=== PATIENT | female | born 1950 | race Asian ===

== ENCOUNTER 2017-10-14 02:49 | Inpatient (IN) | payer OTHER, SELFPAY ==
[2017-10-14] VITALS (7 sets, daily range): BP systolic 104–145; BP diastolic 60–98
[~2017-10-14] VITALS: Ht 154.9 cm; Wt 49.9 kg
[2017-10-14] MEDS ORDERED: Morphine Sulfate 4mg/ml Inj IVP ONE ×2 (03:00→03:45)
--- NOTE | 2017-10-14 03:00 | Emergency Room Report ---
History of Present Illness General Chief Complaint: Multiple Trauma/Fall Source: Patient Present Illness HPI 66-year-old female, history of hypertension and hyperlipidemia, presenting with left hip pain after fall. Patient states that she was going to the bathroom, tripped and fell, landed forward, now complaining of severe left-sided hip pain. EMS gave her 8 mg of morphine which somewhat helped the pain. No head trauma or LOC. No blood thinners Allergies: Coded Allergies: No Known Allergies (Unverified , 10/14/17) Patient History Past Medical History: see triage record Past Surgical History: none Pertinent Family History: none Now: No Reviewed Nursing Documentation: PMH: Agreed; PSxH: Agreed Nursing Documentation-PMH Past Medical History: No History, Except For Hx Neurological Problems: Yes - Arthritis Review of Systems All Other Systems: negative except mentioned in HPI Physical Exam Vital Signs Date Time Temp Pulse Resp B/P (MAP) Pulse Ox O2 Delivery O2 Flow Rate FiO2 10/14/17 02:42 97.8 101 19 154/83 98 Room Air 97.9 Sp02 EP Interpretation: reviewed, normal General Appearance: alert, GCS 15, severe distress Head: normocephalic, atraumatic Eyes: bilateral eye normal inspection, bilateral eye PERRL, bilateral eye EOMI ENT: normal ENT inspection, normal pharynx, normal voice, moist mucus membranes Neck: normal inspection, full range of motion, supple Respiratory: normal inspection, lungs clear, normal breath sounds, no respiratory distress, no retraction, no wheezing, speaking full sentences, chest symmetrical Cardiovascular #1: normal inspection, regular rate, rhythm, no edema, normal capillary refill Cardiovascular #2: 2+ radial (R), 2+ radial (L) Gastrointestinal: normal inspection, non tender, soft, non-distended, no guarding Musculoskeletal: other - Left hip is tender to palpation, no abnormalities in the ankle-foot, distal pulses intact, left hip limited range of motion secondary to pain, back is nontender, full range of motion other extremities Neurologic: normal inspection, alert, oriented x3, responsive, motor strength/ tone normal, sensory intact, speech normal Psychiatric: normal inspection, judgement/insight normal, memory normal Skin: normal inspection, normal color, no rash, warm/dry, well hydrated, normal turgor Medical Decision Making Diagnostic Impression: Primary Impression: Intertrochanteric fracture ER Course 66-year-old female mechanical fall, left hip pain DDX: Hip fracture versus dislocation Plan: Pain control, x-ray ER course: Given morphine for pain +intertrochanteric fx distal pulses intact Disposition: Patient is to be admitted to [facility] hospitalist Dr Childress Notified Orthopedic surgery Dr Blunt Please note that this Emergency Department Report was dictated using [employer] assembly supervisor technology software, occasionally this can lead to erroneous entry secondary to interpretation by the dictation equipment EKG Diagnostic Results EP Interpretation: Yes Rate: normal Rhythm: NSR ST Segments: No acute changes ASA given to patient: No Rhythm Strip EP Interpretation: Yes Rate: 85 Rhythm: NSR, no PVCs, no ectopy Xray: Left hip Complete Indication: Pain EP Interpretation: Yes Interpretation: intertroch fx Acute, mildly comminuted and mildly to moderately displaced intertrochanteric fracture, with mild to moderate apex superolateral angulation and medial displacement of major fracture fragments. (per stat rad) Electronically signed by Cata Valera MD Xray: Left femur 2 view Indication: Pain EP Interpretation: Yes Interpretation: intertroch fx Impression: intertroch fx Electronically signed by Cata Valera MD Laboratory Tests Test 10/14/17 04:00 White Blood Count 11.6 K/UL (4.8-10.8) H Red Blood Count 4.89 M/UL (4.20-5.40) Hemoglobin 15.2 G/DL (12.0-16.0) Hematocrit 44.7 % (37.0-47.0) Mean Corpuscular Volume 91 FL (80-99) Mean Corpuscular Hemoglobin 31.0 PG (27.0-31.0) Mean Corpuscular Hemoglobin Concent 34.0 G/DL (32.0-36.0) Red Cell Distribution Width 11.8 % (11.6-14.8) Platelet Count 291 K/UL (150-450) Mean Platelet Volume 8.5 FL (6.5-10.1) Neutrophils (%) (Auto) 56.9 % (45.0-75.0) Lymphocytes (%) (Auto) 30.4 % (20.0-45.0) Monocytes (%) (Auto) 6.8 % (1.0-10.0) Eosinophils (%) (Auto) 4.2 % (0.0-3.0) H Basophils (%) (Auto) 1.7 % (0.0-2.0) Prothrombin Time 10.0 SEC (9.30-11.50) Prothrombin Time INR 1.0 (0.9-1.1) PTT 28 SEC (23-33) Sodium Level 136 MMOL/L (136-145) Potassium Level 3.4 MMOL/L (3.5-5.1) L Chloride Level 99 MMOL/L (98-107) Carbon Dioxide Level 32 MMOL/L (21-32) Anion Gap 5 mmol/L (5-15) Blood Urea Nitrogen 16 mg/dL (7-18) Creatinine 0.6 MG/DL (0.55-1.30) Estimate Glomerular Filtration Rate > 60 mL/min (>60) Glucose Level 173 MG/DL (74-106) H Calcium Level 9.1 MG/DL (8.5-10.1) Total Bilirubin 0.4 MG/DL (0.2-1.0) Aspartate Amino Transferase (AST) 20 U/L (15-37) Alanine Aminotransferase (ALT) 27 U/L (12-78) Alkaline Phosphatase 87 U/L (46-116) Troponin I 0.002 ng/mL (0.000-0.056) Total Protein 8.6 G/DL (6.4-8.2) H Albumin 4.2 G/DL (3.4-5.0) Globulin 4.4 g/dL Albumin/Globulin Ratio 1.0 (1.0-2.7) Last Vital Signs Date Time Temp Pulse Resp B/P (MAP) Pulse Ox O2 Delivery O2 Flow Rate FiO2 10/14/17 02:42 97.8 101 19 154/83 98 Room Air 97.9 Disposition: ADMITTED INPATIENT Condition: Cata Dyer M.D. Oct 14, 2017 03:00
[2017-10-14 03:59] LABS: ANION GAP 5 mmol/L (5-15); BLOOD UREA NITROGEN 16 mg/dL (7-18); CALCIUM 9.1 MG/DL (8.5-10.1); CARBON DIOXIDE 32 MMOL/L (21-32); CHLORIDE 99 MMOL/L (98-107); CREATININE 0.6 MG/DL (0.55-1.30); POTASSIUM 3.4 MMOL/L (3.5-5.1); SODIUM 136 MMOL/L (136-145)
[2017-10-14 04:04] LABS: ALANINE AMINOTRANSFERASE 27 U/L (12-78); ALBUMIN 4.2 G/DL (3.4-5.0); ALKALINE PHOSPHATASE 87 U/L (46-116); ASPARTATE AMINO TRANSFERASE 20 U/L (15-37); BILIRUBIN,TOTAL 0.4 MG/DL (0.2-1.0)
[2017-10-14 04:15] LABS: BASOPHILS % (AUTO) 1.7 % (0.0-2.0); EOSINOPHILS % (AUTO) 4.2 % (0.0-3.0); HEMATOCRIT 44.7 % (37.0-47.0); HEMOGLOBIN 15.2 G/DL (12.0-16.0); LYMPHOCYTES % (AUTO) 30.4 % (20.0-45.0); MEAN CORPUSCULAR VOLUME 91 FL (80-99); MONOCYTES % (AUTO) 6.8 % (1.0-10.0); NEUTROPHILS % (AUTO) 56.9 % (45.0-75.0); PLATELET COUNT 291 K/UL (150-450); RED BLOOD COUNT 4.89 M/UL (4.20-5.40); RED CELL DISTRIBUTION WIDTH 11.8 % (11.6-14.8); WHITE BLOOD COUNT 11.6 K/UL (4.8-10.8)
[2017-10-14] MEDS ORDERED: NKM (04:26)
[2017-10-14] MEDS ORDERED: LORazepam Inj 2mg/ml 1ml IV ONE (04:30)
[2017-10-14] MEDS ORDERED: HYDROcodone/Acetamin 10/325 tab ORAL PRN (06:45)
[2017-10-14] MEDS ORDERED: Norco 5mg/325mg tab ORAL PRN (06:45)
[2017-10-14] MEDS ORDERED: Miralax 17gm pkt ORAL PRN (06:45)
[2017-10-14] MEDS ORDERED: Morphine Sulfate 2mg/ml Inj IVP PRN (07:00)
[2017-10-14] MEDS: D5 1/2NS w/KCl 40meq 1000ml 1,000 ML IV SCH ×2 (08:13→20:50)
[2017-10-14] MEDS: Docusate 100mg cap ORAL SCH ×3 (10:08→18:18)
--- NOTE | 2017-10-14 10:38 | Diagnostic Imaging Report ---
Indication: Pain, status post fall Technique: One view of the pelvis and 2 views of the left hip Comparison: none Findings: There is a comminuted left hip intertrochanteric fracture. This is slightly angulated. No acute pelvic fracture. The joint spaces are preserved. The bones are osteoporotic Impression: Positive for left hip intertrochanteric fracture. This agrees with the preliminary interpretation provided overnight by [facility] teleradiology service.
--- NOTE | 2017-10-14 10:39 | Diagnostic Imaging Report ---
Indications: Pain, status post fall Technique: Two views of the left femur Comparison: None Findings: There is a left hip intertrochanteric fracture, incompletely included, seen on hip radiographs performed same time. No distal fracture demonstrated. No radiopaque foreign body. The joint spaces are preserved Impression: Positive for intertrochanteric fracture. No evidence of distal fracture
--- NOTE | 2017-10-14 10:45 | Diagnostic Imaging Report ---
Indication: Chest pain Technique: One view of the chest Comparison: 03/21/2009 Findings: Metallic object overlies the lower neck, reportedly external to the patient. Patient did not wish exam to be repeated. Ill-defined parenchymal opacities are seen in the right lateral lung base. There is mild generalized interstitial prominence and bronchial wall thickening. The heart is upper limits normal in size. The aorta is tortuous and ectatic. Impression: Possible patchy airspace opacities in the right lateral lung base. Correlate with clinical findings Mild chronic appearing interstitial changes
--- NOTE | 2017-10-14 13:14 | History & Physical ---
History and Physical History & Physicial Dictated for Int Med-Dr Rao no. [id number]. MEREDITH AVALOS Oct 14, 2017 13:14
[2017-10-14] MEDS ORDERED: MELOXICAM15 MG PO (16:33)
[2017-10-14] MEDS: Morphine Sulfate 4mg/ml Inj IVP PRN ×2 (17:18→22:05)
--- NOTE | 2017-10-14 17:21 | Consultation ---
Consult Note Consult Note patient seen/evaluated. Right Hip IT fracture Plan on ORIF tomorrow. Risk/Benefits/Complications discussed. Full consult dictated. Thank you ZEHRA GARDINER Oct 14, 2017 17:21
[2017-10-14 17:36] LABS: APPEARANCE,URINE CLEAR; BILIRUBIN, URINE NEGATIVE (NEGATIVE); COLOR,URINE PALE YELLOW; GLUCOSE, URINE (UA) 1+ (NEGATIVE); KETONES,URINE NEGATIVE (NEGATIVE); LEUKOCYTE ESTERASE ,URINE NEGATIVE (NEGATIVE); NITRITE,URINE NEGATIVE (NEGATIVE); PH,URINE 6 (4.5-8.0); PROTEIN,URINE 1+ (NEGATIVE); UROBILINOGEN,URINE NORMAL MG/DL (0.0-1.0)
--- NOTE | 2017-10-14 18:34 | Cardiology Report ---
APPROVED REPORT EXAM: Two-dimensional and M-mode echocardiogram with Doppler and color Doppler. INDICATION Preop evaluation M-Mode DIMENSIONS IVSd1.5 (0.7-1.1cm)Left Atrium (MM)2.3 (1.6-4.0cm) LVDd3.8 (3.5-5.6cm)Aortic Root3.6 (2.0-3.7cm) PWd1.5 (0.7-1.1cm)Aortic Cusp Exc.1.6 (1.5-2.0cm) LVDs2.5 (2.5-4.0cm) PWs1.8 cm Normal left ventricular chamber size, systolic function and wall motion to extent visualized. Left ventricular ejection fraction estimated to be 60 %. Study quality precludes accurate assessment of regional wall motion. Mild left ventricular hypertrophy. No evidence of pericardial effusion. All other cardiac chamber sizes are within normal limits. Focal aortic valve sclerosis with adequate cusp excursion. Thickened mitral valve leaflets with normal excursion. Mitral annulus and aortic root calcification. Pulmonic valve not well visualized. Normal tricuspid valve structure. IVC at normal size with physiologic collapse. A color flow and spectral Doppler study was performed and revealed: Mild mitral regurgitation. Mitral diastolic velocities suggest suggest reduced left ventricular relaxation c/w mild LV diastolic dysfunction (Grade I ). Trace tricuspid regurgitation. Tricuspid systolic velocities suggests peak right ventricular systolic pressure of 19 mmHg.
--- NOTE | 2017-10-14 23:01 | History and Physical Report ---
DATE OF ADMISSION: 10/14/2017 CHIEF COMPLAINT: The patient is a 66-year-old white female who presents with chief complaint of left hip pain. HISTORY OF PRESENT ILLNESS: The patient states she was on her way to the restroom this morning. The patient slipped and fell on the marble floor. The patient began to experience extreme left hip pain. The patient presented to [place] emergency room. The patient was found to have comminuted left intertrochanteric femur fracture. The patient was admitted for left femur intertrochanteric fracture for possible open reduction and internal fixation. PAST MEDICAL HISTORY: Significant for hypercholesterolemia. PAST SURGICAL HISTORY: Significant for oophorectomy secondary to cyst. CURRENT MEDICATIONS: Meloxicam 15 mg p.o. daily. ALLERGIES: No known drug allergies. SOCIAL HISTORY: The patient is . The patient admits to tobacco use of one-half pack per day. The patient denies alcohol use. REVIEW OF SYSTEMS: CONSTITUTIONAL: The patient denies weight loss or weight gain. The patient denies fevers or chills. HEENT: The patient denies ear or throat pain. The patient denies headache. CARDIOVASCULAR: The patient denies palpitations or chest pain. CHEST: The patient denies wheeze or shortness of breath. ABDOMEN: The patient denies nausea, vomiting, diarrhea, or constipation. GENITOURINARY: The patient denies dysuria or increased frequency of urination. NEUROMUSCULAR: The patient complains of left hip pain as above. The patient denies loss of consciousness. The patient denies seizures or generalized weakness. PHYSICAL EXAMINATION: GENERAL: The patient is a well-developed and well-nourished, female in no apparent distress. VITAL SIGNS: Temperature 97.8 degrees, respirations 14, pulse 86, blood pressure 145/74. HEENT: Eyes, pupils are equal and responsive to light and accommodation. Extraocular movements are intact. NECK: Supple without lymphadenopathy. CHEST: Lungs are clear to auscultation bilaterally without wheezes or rales. CARDIOVASCULAR: Regular rate. S1 and S2 are normal without murmurs, rubs, or gallops. ABDOMEN: Soft, nontender, and nondistended. Positive bowel sounds. No evidence of hepatosplenomegaly. Currently, no rebound or guarding noted. EXTREMITIES: Negative for clubbing, cyanosis, or edema. There is pain to palpation of the left hip. NEUROMUSCULAR: Cranial nerves II through XII are grossly intact without focal deficits. Motor strength is 5/5 bilaterally. Deep tendon reflexes are 2+ plantar. LABORATORY AND DIAGNOSTIC STUDIES: WBC 11.6, hemoglobin 15.2, hematocrit 44.7 and platelets 291,000. Sodium 136, potassium 3.4, chloride 99, CO2 32, BUN 16, creatinine 0.6, and glucose elevated at 173. Troponin 0.002. ProTime 10.0, INR 1.0, and PTT 28. An x-ray of the left femur revealed slightly angulated left comminuted intertrochanteric femur fracture. ASSESSMENT: This is a 66-year-old, female 1. Left hip pain. 2. Left intertrochanteric femur fracture, comminuted. 3. Hypercholesterolemia. TREATMENT: 1. Left hip pain/left intertrochanteric femur fracture. An Orthopedic consultation will be obtained with Dr. Lei. We will follow recommendations of Orthopedic Surgery. 2. Hypercholesterolemia. The patient is currently off anti-hyperlipidemia medications. Chauncey Smith M.D. DR: NATIVIDAD JOB#: [id number] CC:
[2017-10-15] VITALS (14 sets, daily range): BP systolic 113–159; BP diastolic 68–89
[2017-10-15] MEDS: Morphine Sulfate 4mg/ml Inj IVP PRN ×2 (02:07→06:11)
--- NOTE | 2017-10-15 02:45 | Consultation ---
DATE OF CONSULTATION: 10/14/2017 ORTHOPEDIC CONSULTATION CONSULTING PHYSICIAN: Henrry Blunt M.D. REQUESTING PHYSICIAN: Vern Rao M.D. CHIEF COMPLAINT: Left-sided hip fracture. BRIEF HISTORY: The patient is a very pleasant 66-year-old female, who sustained a mechanical fall and injured her left hip. She apparently slipped on some wet floor and landed on her left hip. She usually walks without any assistive devices. She was admitted through the ER after diagnosis of left hip fracture was noted. She has had no numbness, tingling, or weakness. She has had no other significant injury. Main issue is pain in the left hip. PAST MEDICAL HISTORY: Significant for hypertension. PAST SURGICAL HISTORY: She had oophorectomy. ANESTHESIA DIFFICULTY: None. ALLERGIES: No known drug allergies. SOCIAL HISTORY: She does smoke about half a pack a day. She does not drink. She lives at home with her , who is very supportive. She is an independent ambulator. They have three steps to get into the house. FAMILY HISTORY: Not contributory. REVIEW OF SYSTEM: Reviewed and reconciled. There is no significant finding. PHYSICAL EXAMINATION: Examination of the left hip revealed that her left leg is short and externally rotated. She got tenderness over the left hip. Any motion of the left hip causes pain. There is no tenderness over the knee. DIAGNOSTIC DATA: X-rays of left hip is reviewed. There is reverse obliquity intertrochanteric fracture. IMPRESSION: Left hip reverse obliquity intertrochanteric fracture. PLAN: At this time, I had discussion with the patient and her . I discussed with them we will proceed with left hip open reduction and internal fixation. Risks, benefits, and complications of surgery was fully discussed with her. Risks of infection, bleeding, neurovascular complication, possibility of malunion, possible nonunion, possible continued pain despite surgery, and other complications were discussed with her. She understands the nature of surgery and complications associated with it. We would like to go ahead and pursue with it. All questions were answered. We will go ahead and proceed tomorrow. She is NPO past midnight. A 2D echo was performed for preop clearance. Henrry Paco Blunt DR: MOHIT JOB#: [id number] CC:
[2017-10-15 07:01] LABS: BASOPHILS % (AUTO) 1.1 % (0.0-2.0); EOSINOPHILS % (AUTO) 2.8 % (0.0-3.0); HEMATOCRIT 41.1 % (37.0-47.0); HEMOGLOBIN 13.8 G/DL (12.0-16.0); LYMPHOCYTES % (AUTO) 25.8 % (20.0-45.0); MEAN CORPUSCULAR VOLUME 93 FL (80-99); MONOCYTES % (AUTO) 9.5 % (1.0-10.0); NEUTROPHILS % (AUTO) 60.8 % (45.0-75.0); PLATELET COUNT 256 K/UL (150-450); RED BLOOD COUNT 4.41 M/UL (4.20-5.40); RED CELL DISTRIBUTION WIDTH 12.1 % (11.6-14.8); WHITE BLOOD COUNT 8.6 K/UL (4.8-10.8)
[2017-10-15 07:09] LABS: ANION GAP 6 mmol/L (5-15); BLOOD UREA NITROGEN 9 mg/dL (7-18); CALCIUM 8.4 MG/DL (8.5-10.1); CARBON DIOXIDE 31 MMOL/L (21-32); CHLORIDE 103 MMOL/L (98-107); CREATININE 0.5 MG/DL (0.55-1.30); POTASSIUM 4.3 MMOL/L (3.5-5.1); SODIUM 140 MMOL/L (136-145)
[2017-10-15] MEDS ORDERED: Bupivacaine 0.5% Inj 30 ml vial INJ ONE (08:33)
[2017-10-15] MEDS ORDERED: NeoSporin Gu Irrig 1ml Amp IRRIG ONE (08:33)
[2017-10-15] MEDS ORDERED: EPINEPHrine 1mg/1ml Amp ONE (08:33)
[2017-10-15] MEDS ORDERED: Bacitracin 50000 Units Vial ONE (08:33)
[2017-10-15] MEDS: Docusate 100mg cap ORAL SCH ×2 (09:00→18:05)
--- NOTE | 2017-10-15 09:41 | Anethesia Preoperative Eval ---
Anesthesia Pre-op PMH/ROS General Date of Evaluation: Oct 15, 2017 Time of Evaluation: 11:50 Anesthesiologist: gJ ASA Score: ASA 2 Mallampati Score Class I : Soft palate, uvula, fauces, pillars visible Class II: Soft palate, uvula, fauces visible Class III: Soft palate, base of uvula visible Class IV: Only hard plate visible Mallampati Classification: Class II Surgeon: Jose Raul Diagnosis: left hip fracure Surgical Procedure: ORIF lef hip (Gamma nail) Social History: current smoker Family History: no anesthesia problems Allergies: Coded Allergies: No Known Allergies (Unverified , 10/14/17) Medications: see eMAR Past Medical History Cardiovascular: Denies: HTN, CAD, [place], valve dz, arrhythmia, other Pulmonary: Denies: asthma, COPD, TIMMY, other Gastrointestinal/Genitourinary: Denies: GERD, CRI, ESRD, other Neurologic/Psychiatric: Denies: dementia, CVA, depression/anxiety, TIA, other Endocrine: Denies: DM, hypothyroidism, steroids, other HEENT: Denies: cataract (L), cataract (R), glaucoma, WAMPANOAG (L), WAMPANOAG (R), other Hematology/Immune: Denies: anemia, DVT, bleeding disorder, other Musculoskeletal/Integumentary: Denies: OA, RA, DJD, DDD, edema, other PMH Narrative: Hypercholesterolemia PSxH Narrative: Oophorectomy Anesthesia Pre-op Phys. Exam Physician Exam Last Vital Signs Date Time Temp Pulse Resp B/P (MAP) Pulse Ox O2 Delivery O2 Flow Rate FiO2 10/15/17 08:00 98.5 92 18 148/85 93 Room Air 98.5 10/15/17 03:58 2.0 Constitutional: NAD Neurologic: CN 2-12 intact Cardiovascular: RRR, no M/R/G Respiratory: CTA Gastrointestinal: S/NT/ND Airway Exam Mallampati Score: Class II MO: full ROM: full Dentures: upper, lower Anesthesia Pre-op A/P Labs Hematology Test 10/15/17 06:00 White Blood Count 8.6 K/UL (4.8-10.8) Red Blood Count 4.41 M/UL (4.20-5.40) Hemoglobin 13.8 G/DL (12.0-16.0) Hematocrit 41.1 % (37.0-47.0) Mean Corpuscular Volume 93 FL (80-99) Mean Corpuscular Hemoglobin 31.3 PG (27.0-31.0) H Mean Corpuscular Hemoglobin Concent 33.5 G/DL (32.0-36.0) Red Cell Distribution Width 12.1 % (11.6-14.8) Platelet Count 256 K/UL (150-450) Mean Platelet Volume 7.6 FL (6.5-10.1) Neutrophils (%) (Auto) 60.8 % (45.0-75.0) Lymphocytes (%) (Auto) 25.8 % (20.0-45.0) Monocytes (%) (Auto) 9.5 % (1.0-10.0) Eosinophils (%) (Auto) 2.8 % (0.0-3.0) Basophils (%) (Auto) 1.1 % (0.0-2.0) Chemistry Test 10/15/17 06:00 Sodium Level 140 MMOL/L (136-145) Potassium Level 4.3 MMOL/L (3.5-5.1) Chloride Level 103 MMOL/L (98-107) Carbon Dioxide Level 31 MMOL/L (21-32) Anion Gap 6 mmol/L (5-15) Blood Urea Nitrogen 9 mg/dL (7-18) Creatinine 0.5 MG/DL (0.55-1.30) L Estimat Glomerular Filtration Rate > 60 mL/min (>60) Glucose Level 123 MG/DL (74-106) H Calcium Level 8.4 MG/DL (8.5-10.1) L Studies Pre-op Studies: EKG - SR Risk Assessment & Plan Assessment: Class 2 patient for ORIF left hip (gamma nail) Plan: GA, LMA Status Change Before Surgery: No Pre-Antibiotics Drug: Ancef Given Within 1 Hr of Incision: Yes LINDEN KOHLI M.D. Oct 15, 2017 09:41
[2017-10-15] MEDS: D5 1/2NS w/KCl 40meq 1000ml 1,000 ML IV SCH (10:10)
[2017-10-15] MEDS ORDERED: Midazolam 2mg/2ml Inj ONE (12:00)
[2017-10-15] MEDS ORDERED: fentaNYL 100 mcg/2 mL IV ONE (12:00)
[2017-10-15] MEDS ORDERED: LR 1000ml ONE (12:00)
[2017-10-15] MEDS ORDERED: Propofol 200mg/20ml IV ONE (12:00)
--- NOTE | 2017-10-15 12:36 | Pre-Procedure Note/Attestation ---
Pre-Procedure Note/Attestation Complete Prior to Procedure Planned Procedure: left Procedure Narrative: left hip ORIF Indications for Procedure Pre-Operative Diagnosis: left hip fracture Attestation I attest that I discussed the nature of the procedure; its benefits; risks and complications; and alternatives (and the risks and benefits of such alternatives ), prior to the procedure, with the patient (or the patient's legal software support representative). I attest that, if there was a reasonable possibility of needing a blood transfusion, the patient (or the patient's legal software support representative) was given the [facility] standardized written summary, pursuant to the [place] Blood Safety Act ([place] Health and Safety Code # 1645, as amended). I attest that I re-evaluated the patient just prior to the surgery and that there has been no change in the patient's H&P, except as documented below: NONE ZEHRA GARDINER Oct 15, 2017 12:36
[2017-10-15] MEDS ORDERED: LR 1000ml 1,000 ML IVLG SCH (13:28)
[2017-10-15] MEDS ORDERED: Hydromorphone 0.5mg/0.5ml inj IVP PRN (13:30)
[2017-10-15] MEDS ORDERED: LORazepam Inj 2mg/ml 1ml IV PRN (13:30)
[2017-10-15] MEDS ORDERED: DiphenhydrAMINE 50mg/ml Inj IVP PRN (13:30)
[2017-10-15] MEDS ORDERED: Meperidine 50mg/ml Inj(FOR RIGORS ONLY) IVP ONE (13:30)
--- NOTE | 2017-10-15 13:31 | Immediate Post-Op Evaluation ---
Immediate Post-Op Evalulation Immediate Post-Op Evalulation Procedure: ORIF left femur Date of Evaluation: Oct 15, 2017 Time of Evaluation: 14:31 IV Fluids: 850 Estimated Blood Loss: 50 Urinary Output: 400 Blood Pressure Systolic: 149 Blood Pressure Diastolic: 86 Pulse Rate: 97 Respiratory Rate: 15 O2 Sat by Pulse Oximetry: 99 Pain Score (1-10): 0 Nausea: No Vomiting: No Complications No complication Patient Status: reacts, patent, extubated, none Hydration Status: adequate Drug: Ancef Given Within 1 Hr of Incision: Yes Time Given: 12:45 Brenden Gregorio MD Oct 15, 2017 13:31
--- NOTE | 2017-10-15 14:10 | Brief Operative Note ---
Immediate Post Operative Note Operative Note Chief Complaint: left hip pain Pre-op Diagnosis: left hip fracture Procedure: left hip ORIF Post-op Diagnosis: same as pre-op Findings: consistent w/pre-op dx studies Surgeon: md marylou Director Of Event Management: cari villa Anesthesiologist: md tobias Anesthesia: general Specimen: none Complications: none Condition: stable Fluids: ns Estimated Blood Loss: minimal Drains: none Implant(s) used?: Yes - KELSEY Wyatt Oct 15, 2017 14:10
--- NOTE | 2017-10-15 15:43 | Diagnostic Imaging Report ---
Indication: Left femoral fracture, status post open reduction Technique: 2 views of the left femur Comparison: 10/14/2017 Findings: Interim surgical repair of previously demonstrated left hip intertrochanteric fracture with medullary adams and compression screw. Retained air from the surgical exposure seen in the soft tissues. A Calixto catheter is present Impression: Postoperative left hip. No unusual features
--- NOTE | 2017-10-15 15:44 | Diagnostic Imaging Report ---
Indication: Left hip fracture, pain, intraoperative imaging Technique: Intraoperative images Comparison: none Findings: Intraoperative images demonstrate surgical repair of previously demonstrated left hip intertrochanteric fracture Impression: Intraoperative imaging, as described
--- NOTE | 2017-10-15 17:39 | Internal Med Progress Note ---
Subjective Date of Service: Oct 15, 2017 Physician Name Meredith Smith Attending Physician Vern Rao MD Current Medications Medications (Trade) Dose Ordered Sig/Dylon Route PRN Reason Start Time Stop Time Status Last Admin Dose Admin Acetaminophen (Tylenol) 650 mg Q4H PRN ORAL Mild Pain/Temp > 100.5 10/14/17 06:45 11/13/17 06:44 Acetaminophen (Tylenol) 650 mg Q4H PRN ORAL Mild Pain (Pain Scale 1-3) 10/15/17 16:30 11/14/17 16:29 Acetaminophen/ Hydrocodone Bitart ([place] 5/325) 2 tab Q6H PRN ORAL Severe Pain (Pain Scale 7-10) 10/15/17 13:00 10/22/17 12:59 Acetaminophen/ Hydrocodone Bitart ([place] 7.5/325) 1 tab Q4H PRN ORAL Moderate Pain (Pain Scale 4-6) 10/15/17 13:00 10/22/17 12:59 Amlodipine Besylate (Norvasc) 5 mg BID ORAL 10/14/17 09:00 11/13/17 08:59 10/15/17 09:54 Cefazolin Sodium 2 gm/Dextrose 110 ml @ 220 mls/hr EVERY 8 HOURS IV 10/15/17 22:00 10/16/17 06:29 Dextrose/ Electrolytes 1,000 ml @ 75 mls/hr [id number] IV 10/15/17 17:00 11/14/17 16:59 Docusate Sodium (Colace) 100 mg THREE TIMES A DAY ORAL 10/15/17 18:00 11/14/17 17:59 Enoxaparin Sodium (Lovenox) 30 mg DAILY SUBQ 10/16/17 09:00 10/26/17 08:59 Ferrous Sulfate (Feosol) 325 mg THREE TIMES A DAY ORAL 10/15/17 18:00 11/14/17 17:59 Hydromorphone HCl (Dilaudid) 1 mg Q4H PRN SUBQ Mild Pain (Pain Scale 1-3) 10/15/17 13:00 10/22/17 12:59 Hydromorphone HCl (Dilaudid) 2 mg Q4H PRN SUBQ Moderate Pain (Pain Scale 4-6) 10/15/17 17:00 10/22/17 16:59 Magnesium Hydroxide (Mom) 30 ml DAILYPRN PRN ORAL Constipation 10/15/17 16:30 11/14/17 16:29 Oxycodone HCl (OxyCONTIN) 20 mg EVERY 12 HOURS ORAL 10/15/17 21:00 10/22/17 20:59 Polyethylene Glycol (Miralax) 17 gm TID PRN ORAL Constipation 10/14/17 06:45 11/13/17 06:44 Allergies: Coded Allergies: No Known Allergies (Unverified , 10/14/17) ROS Limited/Unobtainable: No Constitutional: Reports: no symptoms HEENT: Reports: no symptoms Cardiovascular: Reports: no symptoms Respiratory: Reports: no symptoms Gastrointestinal/Abdominal: Reports: no symptoms Genitourinary: Reports: no symptoms Neurologic/Psychiatric: Reports: no symptoms Subjective 66 YO F admitted with left hip fracture. S/P Left femur ORIF 10/15/17. Cover for Int León-Dr Rao Objective Last Vital Signs Date Time Temp Pulse Resp B/P (MAP) Pulse Ox O2 Delivery O2 Flow Rate FiO2 10/15/17 16:18 98.7 10/15/17 16:00 94 17 129/73 95 10/15/17 15:30 Nasal Cannula 3.0 General Appearance: WD/WN, alert, moderate distress EENT: PERRL/EOMI, normal ENT inspection, TMs normal Neck: non-tender, normal alignment, supple Cardiovascular: normal peripheral pulses, normal rate, regular rhythm, no gallop/murmur, no JVD Respiratory/Chest: chest wall non-tender, lungs clear, normal breath sounds, no respiratory distress, no accessory muscle use Abdomen: normal bowel sounds, non tender, soft, no organomegaly, no mass Extremities: normal range of motion, other - tender left hip 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, no motor/sensory deficits Skin: normal pigmentation, warm/dry Laboratory Tests Test 10/15/17 06:00 White Blood Count 8.6 K/UL (4.8-10.8) Red Blood Count 4.41 M/UL (4.20-5.40) Hemoglobin 13.8 G/DL (12.0-16.0) Hematocrit 41.1 % (37.0-47.0) Mean Corpuscular Volume 93 FL (80-99) Mean Corpuscular Hemoglobin 31.3 PG (27.0-31.0) H Mean Corpuscular Hemoglobin Concent 33.5 G/DL (32.0-36.0) Red Cell Distribution Width 12.1 % (11.6-14.8) Platelet Count 256 K/UL (150-450) Mean Platelet Volume 7.6 FL (6.5-10.1) Neutrophils (%) (Auto) 60.8 % (45.0-75.0) Lymphocytes (%) (Auto) 25.8 % (20.0-45.0) Monocytes (%) (Auto) 9.5 % (1.0-10.0) Eosinophils (%) (Auto) 2.8 % (0.0-3.0) Basophils (%) (Auto) 1.1 % (0.0-2.0) Sodium Level 140 MMOL/L (136-145) Potassium Level 4.3 MMOL/L (3.5-5.1) Chloride Level 103 MMOL/L (98-107) Carbon Dioxide Level 31 MMOL/L (21-32) Anion Gap 6 mmol/L (5-15) Blood Urea Nitrogen 9 mg/dL (7-18) Creatinine 0.5 MG/DL (0.55-1.30) L Estimat Glomerular Filtration Rate > 60 mL/min (>60) Glucose Level 123 MG/DL (74-106) H Calcium Level 8.4 MG/DL (8.5-10.1) L Intake and Output 10/14/17 10/15/17 19:00 07:00 Intake Total 230 ml 825 ml Balance 230 ml 825 ml Intake Oral 230 ml IV Total 825 ml # Voids 1 1 Assessment/Plan Problem List: (1) Intertrochanteric fracture of left femur Assessment & Plan: S/P ORIF 10/15/17. See ortho note. Physical therapy eval (2) Left hip pain Assessment & Plan: Continue dilaudid or norco prn (3) Post-op pain (4) Postoperative nausea and vomiting Assessment & Plan: PRN MEREDITH Armenta Oct 15, 2017 17:39
[2017-10-15] MEDS ORDERED: LORazepam 0.5mg tab SL PRN (18:00)
[2017-10-15] MEDS: D5 1/2NS w/KCl 20mEq 1,000 ML IV SCH (18:05)
[2017-10-15] MEDS: HYDROcodone/Acetamin 7.5/325 tab ORAL PRN (18:05)
[2017-10-15] MEDS: oxyCONTIN 20mg tab ORAL SCH (20:54)
[2017-10-15] MEDS: ceFAZolin sod 2 GM in D5W 110 ML IV SCH (21:03)
--- NOTE | 2017-10-15 23:15 | Operative Note - Dictated ---
DATE OF OPERATION: 10/15/2017 PREOPERATIVE DIAGNOSIS: Left hip reverse obliquity intertrochanteric fracture with subtrochanteric extension. POSTOPERATIVE DIAGNOSIS: Left hip reverse obliquity intertrochanteric fracture with subtrochanteric extension. PROCEDURE: Left hip open reduction and internal fixation using a long gamma nail with 36 cm nail x 10 mm in diameter, 85 mm lag screw with single distal fixation screw. SURGEON: Henrry Blunt M.D. TEACHERS ASSISTANT: Marlys Campos PA-C. ANESTHESIOLOGIST: Brenden Gregorio M.D. ANESTHESIA: General LMA anesthesia. EBL: Less than 100 mL. COMPLICATIONS: None. BRIEF HISTORY: The patient is a pleasant 66-year-old female who sustained a mechanical fall and sustained a left hip fracture. She was evaluated in the ER and x-rays were obtained. X-rays showed a left hip intertrochanteric reverse obliquity fracture with displacement. A greater trochanteric piece was displaced and abducted. After full discussion of the risks and benefits of the surgery and complications associated with it including infection, bleeding, neurovascular complication, possibility of malunion, possibility of nonunion, possible other complications that may arise, she opted for surgical treatment as described above. OPERATIVE PROCEDURE: The patient was brought to the operating table and was placed supine. All pressure points were well padded. General LMA anesthesia was induced and the patient was placed on a traction table with left leg in traction and right leg in a well leg mcmahon. The reduction was checked on AP and lateral and on lateral, it was anatomical and on AP, the reduction was anatomical except that the greater trochanteric portion was slightly abducted. Multiple attempts were made to close to reduce this. However, because of the pull of abductors, this would not reduce. However, it was felt that opening this fracture and devitalizing the bone is not in the best interest of the patient. Therefore, a decision was made to proceed with a closed reduction accepting slight displacement on the AP view of the greater trochanter, although the head and neck, and the Shaft alignment of the fracture were aligned anatomically. An incision was made just proximal to the greater trochanter. The incision was taken through subcutaneous tissue, gluteal fascia was opened, and entry point of the greater trochanter into the neck and into the shaft was obtained. At this point, using open reamer, the proximal opening was obtained. Attempts were made to again reduced the greater trochanter and this failed because we were unable to reduce it because of pull of abductors. At this point, a long guidewire was placed in and measurements made, and 36 cm nail was the right size, 10 mm diameter was the right size. Sequential reaming was performed up to 12 mm and subsequently partial reaming was performed. At this point, a 36 cm x 10 mm nail was then placed without any complication. A guidewire was placed in from lateral into the neck, into the head in a center-center position and measurements were made. An 85 mm lag screw appeared to be the right size. The lag screw was then drilled and was placed in without any complication. The locking screw was then locked in on top of the lag screw. Again, the reduction of the neck and head were anatomical, although again the lateral cortex of the greater trochanter was slightly displaced and we accepted this placement and it was felt that opening and try and reducing that anatomically with devitalized tissue. At this point, care was given to distal fixation, perfect circles were obtained using image intensifier and a drilling was performed and a 37.5 mm screw was placed from lateral cortex into the nail into the medial cortex of the proximal locking screw on the first distal screw hole, which was a non-dynamized screw. Once this was completed, using image intensifier, the fracture reduction both on AP and lateral as well as the distal screw fixation was checked and appeared to be in great position. All wounds were thoroughly irrigated using copious amount of fluid. The hardware was in great position. The lag screw was in the subcortical bone proximally. The distal locking screw was bicortical. At this point, the guides were removed. Wounds were thoroughly irrigated. The gluteal fascia was closed using #1 Vicryl suture and subcutaneous tissue was closed using 2-0 Vicryl suture and skin was closed using 3-0 Monocryl suture. Steri-Strips were applied. Sterile dressing was applied. The patient tolerated the procedure well without any complication and was taken to recovery room in stable condition. All lap counts and instrument counts were correct. Henrry Blunt M.D. DR: KAM JOB#: [id number] CC: MALLORY
[2017-10-16] VITALS (7 sets, daily range): BP systolic 99–131; BP diastolic 59–76
[2017-10-16] MEDS: Norco 5mg/325mg tab ORAL PRN (04:02)
[2017-10-16] MEDS: ceFAZolin sod 2 GM in D5W 110 ML IV SCH (05:53)
[2017-10-16] MEDS: D5 1/2NS w/KCl 20mEq 1,000 ML IV SCH (05:53)
[2017-10-16 06:30] LABS: BASOPHILS % (AUTO) 1.7 % (0.0-2.0); EOSINOPHILS % (AUTO) 2.4 % (0.0-3.0); HEMATOCRIT 34.7 % (37.0-47.0); HEMOGLOBIN 11.8 G/DL (12.0-16.0); LYMPHOCYTES % (AUTO) 16.3 % (20.0-45.0); MEAN CORPUSCULAR VOLUME 92 FL (80-99); MONOCYTES % (AUTO) 10.5 % (1.0-10.0); NEUTROPHILS % (AUTO) 69.2 % (45.0-75.0); PLATELET COUNT 228 K/UL (150-450); RED BLOOD COUNT 3.76 M/UL (4.20-5.40); RED CELL DISTRIBUTION WIDTH 11.9 % (11.6-14.8); WHITE BLOOD COUNT 10.3 K/UL (4.8-10.8)
[2017-10-16 06:46] LABS: ANION GAP 5 mmol/L (5-15); BLOOD UREA NITROGEN 8 mg/dL (7-18); CALCIUM 8.2 MG/DL (8.5-10.1); CARBON DIOXIDE 30 MMOL/L (21-32); CHLORIDE 103 MMOL/L (98-107); CREATININE 0.5 MG/DL (0.55-1.30); POTASSIUM 4.1 MMOL/L (3.5-5.1); SODIUM 138 MMOL/L (136-145)
--- NOTE | 2017-10-16 08:13 | Orthopedic Progress Note ---
Orthopedic - Progress Note Subjective Symptoms: improved Objective Vital Signs Laboratory Tests Test 10/16/17 05:40 White Blood Count 10.3 K/UL (4.8-10.8) Red Blood Count 3.76 M/UL (4.20-5.40) L Hemoglobin 11.8 G/DL (12.0-16.0) L Hematocrit 34.7 % (37.0-47.0) L Mean Corpuscular Volume 92 FL (80-99) Mean Corpuscular Hemoglobin 31.5 PG (27.0-31.0) H Mean Corpuscular Hemoglobin Concent 34.1 G/DL (32.0-36.0) Red Cell Distribution Width 11.9 % (11.6-14.8) Platelet Count 228 K/UL (150-450) Mean Platelet Volume 8.0 FL (6.5-10.1) Neutrophils (%) (Auto) 69.2 % (45.0-75.0) Lymphocytes (%) (Auto) 16.3 % (20.0-45.0) L Monocytes (%) (Auto) 10.5 % (1.0-10.0) H Eosinophils (%) (Auto) 2.4 % (0.0-3.0) Basophils (%) (Auto) 1.7 % (0.0-2.0) Sodium Level 138 MMOL/L (136-145) Potassium Level 4.1 MMOL/L (3.5-5.1) Chloride Level 103 MMOL/L (98-107) Carbon Dioxide Level 30 MMOL/L (21-32) Anion Gap 5 mmol/L (5-15) Blood Urea Nitrogen 8 mg/dL (7-18) Creatinine 0.5 MG/DL (0.55-1.30) L Estimat Glomerular Filtration Rate > 60 mL/min (>60) Glucose Level 129 MG/DL (74-106) H Calcium Level 8.2 MG/DL (8.5-10.1) L Last 24 Hour Vital Signs Date Time Temp Pulse Resp B/P (MAP) Pulse Ox O2 Delivery O2 Flow Rate FiO2 10/16/17 06:52 98.7 10/16/17 04:00 98.7 98 18 125/66 95 Nasal Cannula 3.0 98.7 10/16/17 00:00 97.8 103 19 99/62 95 Nasal Cannula 3.0 97.8 10/15/17 20:00 99.1 111 18 137/89 96 Nasal Cannula 3.0 99.1 10/15/17 19:04 97.0 10/15/17 18:05 97.0 10/15/17 17:54 103 113/72 10/15/17 17:00 97.0 103 20 113/72 97 97.0 10/15/17 17:00 Nasal Cannula 3.0 10/15/17 16:18 98.7 10/15/17 16:00 Nasal Cannula 3.0 10/15/17 16:00 97.0 94 17 129/73 95 97.0 10/15/17 15:30 84 20 116/68 99 Nasal Cannula 3.0 98 10/15/17 15:25 88 20 144/82 99 Nasal Cannula 3.0 97 10/15/17 15:10 90 20 159/88 99 Simple Mask 8.0 95 10/15/17 14:55 99 20 159/89 99 Simple Mask 8.0 95 10/15/17 14:40 99 20 154/83 99 Simple Mask 8.0 95 10/15/17 14:30 95 20 148/85 99 Simple Mask 8.0 95 10/15/17 14:27 97 15 99 10/15/17 14:25 101 20 142/85 99 Simple Mask 8.0 101 10/15/17 14:20 98.7 108 20 149/86 99 Simple Mask 8.0 98.7 108 10/15/17 09:54 92 148/85 I&O Intake and Output 10/15/17 10/16/17 19:00 07:00 Intake Total 1375 ml 950 ml Output Total 650 ml 550 ml Balance 725 ml 400 ml Intake Oral 200 ml IV Total 1375 ml 750 ml Output Urine Total 600 ml 550 ml Estimated Blood Loss 50 ml Wound: clean, dry, intact Drains: none Neuro Status: normal Vascular Status: normal Additional Comments xray excellent Assessment Post-op Diagnosis POD 1 Procedure Performed left hip ORIF Plan Plan: PT, pain management, discharge plan - likely will need SNF. f/u Dr hickman 2 weeks as outpt KELSEY SOLORZANO Oct 16, 2017 08:13
[2017-10-16] MEDS: Docusate 100mg cap ORAL SCH ×3 (08:48→17:14)
[2017-10-16] MEDS: oxyCONTIN 20mg tab ORAL SCH ×2 (08:49→21:07)
[2017-10-16] MEDS: Enoxaparin 30mg Inj SUBQ SCH (08:49)
--- NOTE | 2017-10-16 09:10 | Diagnostic Imaging Report ---
Indication: Postoperative Technique: One view of the pelvis Comparison: 10/14/2017 Findings: Patient is status post operative reduction and internal fixation of left hip intertrochanteric fracture, with placement of medullary adams and compression screw. There is a Calixto catheter in place. Impression: Intraoperative imaging, as described
--- NOTE | 2017-10-16 11:15 | 48 Hour Post Anesthesia Eval ---
Post Anesthesia Evaluation Procedure: ORIF left femur Date of Evaluation: Oct 16, 2017 Time of Evaluation: 09:20 Blood Pressure Systolic: 114 0: 56 Pulse Rate: 72 Respiratory Rate: 20 Temperature (Fahrenheit): 97.5 O2 Sat by Pulse Oximetry: 98 Airway: patent Nausea: No Vomiting: No Pain Intensity: 2 Hydration Status: adequate Cardiopulmonary Status: stable Mental Status/LOC: patient returned to baseline Follow-up Care/Observations: n/a Post-Anesthesia Complications: none Follow-up care needed: N/A JOSE SHAIKH M.D. Oct 16, 2017 11:15
--- NOTE | 2017-10-16 13:21 | Internal Med Progress Note ---
Subjective Date of Service: Oct 16, 2017 Physician Name Avalos,Meredith Attending Physician Vern Rao MD Current Medications Medications (Trade) Dose Ordered Sig/Dylon Route PRN Reason Start Time Stop Time Status Last Admin Dose Admin Acetaminophen (Tylenol) 650 mg Q4H PRN ORAL Mild Pain/Temp > 100.5 10/14/17 06:45 11/13/17 06:44 Acetaminophen (Tylenol) 650 mg Q4H PRN ORAL Mild Pain (Pain Scale 1-3) 10/15/17 16:30 11/14/17 16:29 Acetaminophen/ Hydrocodone Bitart ([place] 5/325) 2 tab Q6H PRN ORAL Severe Pain (Pain Scale 7-10) 10/15/17 13:00 10/22/17 12:59 10/16/17 04:02 Acetaminophen/ Hydrocodone Bitart ([place] 7.5/325) 1 tab Q4H PRN ORAL Moderate Pain (Pain Scale 4-6) 10/15/17 13:00 10/22/17 12:59 10/15/17 18:05 Amlodipine Besylate (Norvasc) 5 mg BID ORAL 10/14/17 09:00 11/13/17 08:59 10/15/17 09:54 Dextrose/ Electrolytes 1,000 ml @ 75 mls/hr [id number] IV 10/15/17 17:00 11/14/17 16:59 10/16/17 05:53 Docusate Sodium (Colace) 100 mg THREE TIMES A DAY ORAL 10/15/17 18:00 11/14/17 17:59 10/16/17 13:09 Enoxaparin Sodium (Lovenox) 30 mg DAILY SUBQ 10/16/17 09:00 10/26/17 08:59 10/16/17 08:49 Ferrous Sulfate (Feosol) 325 mg THREE TIMES A DAY ORAL 10/15/17 18:00 11/14/17 17:59 10/16/17 13:09 Hydromorphone HCl (Dilaudid) 1 mg Q4H PRN SUBQ Mild Pain (Pain Scale 1-3) 10/15/17 13:00 10/22/17 12:59 Hydromorphone HCl (Dilaudid) 2 mg Q4H PRN SUBQ Moderate Pain (Pain Scale 4-6) 10/15/17 17:00 10/22/17 16:59 10/16/17 06:52 Lorazepam (Ativan) 0.5 mg Q6H PRN SL For Anxiety 10/15/17 18:00 10/22/17 17:59 Magnesium Hydroxide (Mom) 30 ml DAILYPRN PRN ORAL Constipation 10/15/17 16:30 11/14/17 16:29 Ondansetron HCl (Zofran) 4 mg Q4H PRN IVP Nausea & Vomiting 10/15/17 18:00 11/14/17 17:59 10/15/17 18:04 Oxycodone HCl (OxyCONTIN) 20 mg EVERY 12 HOURS ORAL 10/15/17 21:00 10/22/17 20:59 10/15/17 20:54 Polyethylene Glycol (Miralax) 17 gm TID PRN ORAL Constipation 10/14/17 06:45 11/13/17 06:44 Allergies: Coded Allergies: No Known Allergies (Unverified , 10/14/17) ROS Limited/Unobtainable: No Constitutional: Reports: no symptoms HEENT: Reports: no symptoms Cardiovascular: Reports: no symptoms Respiratory: Reports: no symptoms Gastrointestinal/Abdominal: Reports: no symptoms Genitourinary: Reports: no symptoms Neurologic/Psychiatric: Reports: no symptoms Subjective 66 YO F admitted with left hip fracture. S/P Left femur ORIF 10/15/17. Cover for Ena Rao Objective Last Vital Signs Date Time Temp Pulse Resp B/P (MAP) Pulse Ox O2 Delivery O2 Flow Rate FiO2 10/16/17 12:00 98.1 90 16 108/59 95 Room Air 98.1 10/16/17 08:00 3.0 Laboratory Tests Test 10/16/17 05:40 White Blood Count 10.3 K/UL (4.8-10.8) Red Blood Count 3.76 M/UL (4.20-5.40) L Hemoglobin 11.8 G/DL (12.0-16.0) L Hematocrit 34.7 % (37.0-47.0) L Mean Corpuscular Volume 92 FL (80-99) Mean Corpuscular Hemoglobin 31.5 PG (27.0-31.0) H Mean Corpuscular Hemoglobin Concent 34.1 G/DL (32.0-36.0) Red Cell Distribution Width 11.9 % (11.6-14.8) Platelet Count 228 K/UL (150-450) Mean Platelet Volume 8.0 FL (6.5-10.1) Neutrophils (%) (Auto) 69.2 % (45.0-75.0) Lymphocytes (%) (Auto) 16.3 % (20.0-45.0) L Monocytes (%) (Auto) 10.5 % (1.0-10.0) H Eosinophils (%) (Auto) 2.4 % (0.0-3.0) Basophils (%) (Auto) 1.7 % (0.0-2.0) Sodium Level 138 MMOL/L (136-145) Potassium Level 4.1 MMOL/L (3.5-5.1) Chloride Level 103 MMOL/L (98-107) Carbon Dioxide Level 30 MMOL/L (21-32) Anion Gap 5 mmol/L (5-15) Blood Urea Nitrogen 8 mg/dL (7-18) Creatinine 0.5 MG/DL (0.55-1.30) L Estimat Glomerular Filtration Rate > 60 mL/min (>60) Glucose Level 129 MG/DL (74-106) H Calcium Level 8.2 MG/DL (8.5-10.1) L Intake and Output 10/15/17 10/16/17 19:00 07:00 Intake Total 1375 ml 950 ml Output Total 650 ml 550 ml Balance 725 ml 400 ml Intake Oral 200 ml IV Total 1375 ml 750 ml Output Urine Total 600 ml 550 ml Estimated Blood Loss 50 ml Objective General Appearance: WD/WN, alert, moderate distress EENT: PERRL/EOMI, normal ENT inspection, TMs normal Neck: non-tender, normal alignment, supple Cardiovascular: normal peripheral pulses, normal rate, regular rhythm, no gallop/murmur, no JVD Respiratory/Chest: chest wall non-tender, lungs clear, normal breath sounds, no respiratory distress, no accessory muscle use Abdomen: normal bowel sounds, non tender, soft, no organomegaly, no mass Extremities: normal range of motion, other - tender left hip 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 See ortho note. Physical therapy eval (2) Left hip pain Assessment & Plan: Continue dilaudid or norco prn (3) Post-op pain (4) Postoperative nausea and vomiting Assessment & Plan: PRN zofran Status: not improved Assessment/Plan Discharge planning: Acute rehab MEREDITH AVALOS Oct 16, 2017 13:21
[2017-10-16] MEDS ORDERED: Tubing IV Secondary IV ONE (17:36)
[2017-10-17] MEDS: HYDROcodone/Acetamin 7.5/325 tab ORAL PRN (02:23)
[2017-10-17 04:00] VITALS: BP 102/70
[2017-10-17 07:32] LABS: ANION GAP 6 mmol/L (5-15); BLOOD UREA NITROGEN 10 mg/dL (7-18); CALCIUM 8.6 MG/DL (8.5-10.1); CARBON DIOXIDE 32 MMOL/L (21-32); CHLORIDE 99 MMOL/L (98-107); CREATININE 0.6 MG/DL (0.55-1.30); SODIUM 137 MMOL/L (136-145)
[2017-10-17 07:41] LABS: BASOPHILS % (AUTO) 3.2 % (0.0-2.0); EOSINOPHILS % (AUTO) 3.4 % (0.0-3.0); HEMATOCRIT 33.2 % (37.0-47.0); HEMOGLOBIN 11.6 G/DL (12.0-16.0); LYMPHOCYTES % (AUTO) 21.1 % (20.0-45.0); MEAN CORPUSCULAR VOLUME 92 FL (80-99); MONOCYTES % (AUTO) 8.3 % (1.0-10.0); NEUTROPHILS % (AUTO) 63.9 % (45.0-75.0); PLATELET COUNT 234 K/UL (150-450); RED BLOOD COUNT 3.61 M/UL (4.20-5.40); RED CELL DISTRIBUTION WIDTH 11.8 % (11.6-14.8); WHITE BLOOD COUNT 12.1 K/UL (4.8-10.8)
[2017-10-17 08:00] VITALS: BP 116/69
[2017-10-17] MEDS: Docusate 100mg cap ORAL SCH ×3 (09:27→18:55)
[2017-10-17] MEDS: oxyCONTIN 20mg tab ORAL SCH ×2 (09:27→21:00)
[2017-10-17] MEDS: Enoxaparin 30mg Inj SUBQ SCH (09:28)
[2017-10-17 12:00] VITALS: BP 112/58
[2017-10-17] MEDS: Norco 5mg/325mg tab ORAL PRN (13:16)
[2017-10-17 16:00] VITALS: BP 97/56
--- NOTE | 2017-10-17 19:04 | Internal Med Progress Note ---
Subjective Physician Name Vern Rao Attending Physician Vern Rao MD Current Medications Medications (Trade) Dose Ordered Sig/Dylon Route PRN Reason Start Time Stop Time Status Last Admin Dose Admin Acetaminophen (Tylenol) 650 mg Q4H PRN ORAL Mild Pain/Temp > 100.5 10/14/17 06:45 11/13/17 06:44 Acetaminophen (Tylenol) 650 mg Q4H PRN ORAL Mild Pain (Pain Scale 1-3) 10/15/17 16:30 11/14/17 16:29 Acetaminophen/ Hydrocodone Bitart ([place] 5/325) 2 tab Q6H PRN ORAL Severe Pain (Pain Scale 7-10) 10/15/17 13:00 10/22/17 12:59 10/17/17 13:16 Acetaminophen/ Hydrocodone Bitart ([place] 7.5/325) 1 tab Q4H PRN ORAL Moderate Pain (Pain Scale 4-6) 10/15/17 13:00 10/22/17 12:59 10/17/17 02:23 Amlodipine Besylate (Norvasc) 5 mg BID ORAL 10/14/17 09:00 11/13/17 08:59 10/17/17 09:27 Diphenhydramine HCl (Benadryl) 25 mg Q8H PRN ORAL Itching 10/17/17 18:15 11/16/17 18:14 10/17/17 18:55 Docusate Sodium (Colace) 100 mg THREE TIMES A DAY ORAL 10/15/17 18:00 11/14/17 17:59 10/17/17 18:55 Enoxaparin Sodium (Lovenox) 30 mg DAILY SUBQ 10/16/17 09:00 10/26/17 08:59 10/17/17 09:28 Ferrous Sulfate (Feosol) 325 mg THREE TIMES A DAY ORAL 10/15/17 18:00 11/14/17 17:59 10/17/17 18:55 Hydromorphone HCl (Dilaudid) 1 mg Q4H PRN SUBQ Mild Pain (Pain Scale 1-3) 10/15/17 13:00 10/22/17 12:59 Hydromorphone HCl (Dilaudid) 2 mg Q4H PRN SUBQ Moderate Pain (Pain Scale 4-6) 10/15/17 17:00 10/22/17 16:59 10/16/17 16:48 Lorazepam (Ativan) 0.5 mg Q6H PRN SL For Anxiety 10/15/17 18:00 10/22/17 17:59 Magnesium Hydroxide (Mom) 30 ml DAILYPRN PRN ORAL Constipation 10/15/17 16:30 11/14/17 16:29 Ondansetron HCl (Zofran ODT) 4 mg Q6H PRN ORAL Nausea & Vomiting 10/16/17 17:30 11/15/17 17:29 10/16/17 17:14 Ondansetron HCl (Zofran) 4 mg Q4H PRN IVP Nausea & Vomiting 10/15/17 18:00 11/14/17 17:59 10/15/17 18:04 Oxycodone HCl (OxyCONTIN) 20 mg EVERY 12 HOURS ORAL 10/15/17 21:00 10/22/17 20:59 10/17/17 09:27 Polyethylene Glycol (Miralax) 17 gm TID PRN ORAL Constipation 10/14/17 06:45 11/13/17 06:44 Allergies: Coded Allergies: No Known Allergies (Unverified , 10/14/17) Subjective awake, alert, responsive, C/O Left Hip Pain Objective Last Vital Signs Date Time Temp Pulse Resp B/P (MAP) Pulse Ox O2 Delivery O2 Flow Rate FiO2 10/17/17 18:30 85 97/56 10/17/17 16:00 98.6 20 92 98.6 10/17/17 04:00 Nasal Cannula 2.0 Laboratory Tests Test 10/17/17 07:00 White Blood Count 12.1 K/UL (4.8-10.8) H Red Blood Count 3.61 M/UL (4.20-5.40) L Hemoglobin 11.6 G/DL (12.0-16.0) L Hematocrit 33.2 % (37.0-47.0) L Mean Corpuscular Volume 92 FL (80-99) Mean Corpuscular Hemoglobin 32.0 PG (27.0-31.0) H Mean Corpuscular Hemoglobin Concent 34.8 G/DL (32.0-36.0) Red Cell Distribution Width 11.8 % (11.6-14.8) Platelet Count 234 K/UL (150-450) Mean Platelet Volume 7.6 FL (6.5-10.1) Neutrophils (%) (Auto) 63.9 % (45.0-75.0) Lymphocytes (%) (Auto) 21.1 % (20.0-45.0) Monocytes (%) (Auto) 8.3 % (1.0-10.0) Eosinophils (%) (Auto) 3.4 % (0.0-3.0) H Basophils (%) (Auto) 3.2 % (0.0-2.0) H Sodium Level 137 MMOL/L (136-145) Potassium Level 4.0 MMOL/L (3.5-5.1) Chloride Level 99 MMOL/L (98-107) Carbon Dioxide Level 32 MMOL/L (21-32) Anion Gap 6 mmol/L (5-15) Blood Urea Nitrogen 10 mg/dL (7-18) Creatinine 0.6 MG/DL (0.55-1.30) Estimat Glomerular Filtration Rate > 60 mL/min (>60) Glucose Level 111 MG/DL (74-106) H Calcium Level 8.6 MG/DL (8.5-10.1) Intake and Output 10/16/17 10/17/17 19:00 07:00 Intake Total 1170 ml Output Total 600 ml Balance 1170 ml -600 ml Intake Oral 720 ml IV Total 450 ml Output Urine Total 600 ml Objective General: No acute distress, awake and alert HEENT: NCAT, sclera anicteric, PERRL, EOMI. Neck: Supple, no significant jugular venous distention, Lungs: Good inspiratory effort, no accessory muscle use, clear to auscultation bilaterally, no Wheeze or Rales. Heart: Regular rate and rhythm, normal S1/S2, no murmurs Abdomen: soft, nontender, nondistended. Normoactive bowel sounds. / Rectal: Refused and deferred. Extremities: No Cyanosis , clubbing or edema. Left hip tenderness over surgical incision. Neuro: A&O x 3, Able to move all extremities Skin: warm, no rashes or lesions Psych: Normal mood and affect Assessment/Plan Assessment/Plan (1) Intertrochanteric fracture of left femur Assessment & Plan: S/P ORIF 10/15/17. See ortho note. Physical therapy eval (2) Left hip pain Assessment & Plan: Continue dilaudid or norco prn (3) Dyslipidemia (4) Postoperative nausea and vomiting Assessment & Plan: PRN zofran Status: not improved Assessment/Plan Discharge planning: Acute rehab Vern Rao MD Oct 17, 2017 19:04
--- NOTE | 2017-10-17 19:17 | Cardiology Report ---
APPROVED REPORT EKG Measurement Heart [id number] CT [id number] Normal sinus rhythm Prolonged QT Abnormal ECG
[2017-10-17 20:00] VITALS: BP 125/78
[2017-10-18] VITALS: BP 101/64
[2017-10-18 07:06] LABS: BASOPHILS % (AUTO) 2.1 % (0.0-2.0); EOSINOPHILS % (AUTO) 7.6 % (0.0-3.0); HEMATOCRIT 32.2 % (37.0-47.0); HEMOGLOBIN 11.2 G/DL (12.0-16.0); LYMPHOCYTES % (AUTO) 24.4 % (20.0-45.0); MEAN CORPUSCULAR VOLUME 89 FL (80-99); MONOCYTES % (AUTO) 9.8 % (1.0-10.0); NEUTROPHILS % (AUTO) 56.2 % (45.0-75.0); PLATELET COUNT 268 K/UL (150-450); RED CELL DISTRIBUTION WIDTH 11.2 % (11.6-14.8); WHITE BLOOD COUNT 9.3 K/UL (4.8-10.8)
[2017-10-18 08:00] VITALS: BP 95/64
[2017-10-18] MEDS: Docusate 100mg cap ORAL SCH ×3 (08:41→18:30)
[2017-10-18] MEDS: oxyCONTIN 20mg tab ORAL SCH ×2 (08:41→20:15)
[2017-10-18] MEDS: Enoxaparin 30mg Inj SUBQ SCH (08:42)
[2017-10-18 12:00] VITALS: BP 128/60
[2017-10-18 16:00] VITALS: BP 111/57
[2017-10-18 20:00] VITALS: BP 121/67
[2017-10-18 23:31] VITALS: BP 97/59
[2017-10-19] MEDS: Norco 5mg/325mg tab ORAL PRN (03:54)
[2017-10-19 04:00] VITALS: BP 127/87
[2017-10-19 06:37] LABS: EOSINOPHILS % (AUTO) 9.6 % (0.0-3.0); HEMATOCRIT 31.1 % (37.0-47.0); HEMOGLOBIN 10.7 G/DL (12.0-16.0); LYMPHOCYTES % (AUTO) 27.3 % (20.0-45.0); MEAN CORPUSCULAR VOLUME 91 FL (80-99); MONOCYTES % (AUTO) 11.8 % (1.0-10.0); NEUTROPHILS % (AUTO) 48.3 % (45.0-75.0); PLATELET COUNT 284 K/UL (150-450); RED BLOOD COUNT 3.41 M/UL (4.20-5.40); RED CELL DISTRIBUTION WIDTH 11.7 % (11.6-14.8); WHITE BLOOD COUNT 7.7 K/UL (4.8-10.8)
[2017-10-19 08:00] VITALS: BP 106/58
[2017-10-19] MEDS: Milk of Magnesia 30ml Ud ORAL PRN (09:24)
[2017-10-19] MEDS: Docusate 100mg cap ORAL SCH ×3 (09:25→17:12)
[2017-10-19] MEDS: oxyCONTIN 20mg tab ORAL SCH ×2 (09:26→20:16)
[2017-10-19] MEDS: Enoxaparin 30mg Inj SUBQ SCH (09:26)
[2017-10-19 12:00] VITALS: BP 116/72
--- NOTE | 2017-10-19 12:35 | Internal Med Progress Note ---
Subjective Date of Service: Oct 18, 2017 Physician Name SarahMeredith Attending Physician Vern Rao MD Current Medications Medications (Trade) Dose Ordered Sig/Dylon Route PRN Reason Start Time Stop Time Status Last Admin Dose Admin Acetaminophen (Tylenol) 650 mg Q4H PRN ORAL Mild Pain/Temp > 100.5 10/14/17 06:45 11/13/17 06:44 Acetaminophen (Tylenol) 650 mg Q4H PRN ORAL Mild Pain (Pain Scale 1-3) 10/15/17 16:30 11/14/17 16:29 Acetaminophen/ Hydrocodone Bitart ([place] 5/325) 2 tab Q6H PRN ORAL Severe Pain (Pain Scale 7-10) 10/15/17 13:00 10/22/17 12:59 10/19/17 03:54 Acetaminophen/ Hydrocodone Bitart ([place] 7.5/325) 1 tab Q4H PRN ORAL Moderate Pain (Pain Scale 4-6) 10/15/17 13:00 10/22/17 12:59 10/17/17 02:23 Amlodipine Besylate (Norvasc) 5 mg BID ORAL 10/14/17 09:00 11/13/17 08:59 10/19/17 09:25 Diphenhydramine HCl (Benadryl) 25 mg Q8H PRN ORAL Itching 10/17/17 18:15 11/16/17 18:14 10/18/17 23:17 Docusate Sodium (Colace) 100 mg THREE TIMES A DAY ORAL 10/15/17 18:00 11/14/17 17:59 10/19/17 09:25 Enoxaparin Sodium (Lovenox) 30 mg DAILY SUBQ 10/16/17 09:00 10/26/17 08:59 10/19/17 09:26 Ferrous Sulfate (Feosol) 325 mg THREE TIMES A DAY ORAL 10/15/17 18:00 11/14/17 17:59 10/19/17 09:25 Hydromorphone HCl (Dilaudid) 1 mg Q4H PRN SUBQ Mild Pain (Pain Scale 1-3) 10/15/17 13:00 10/22/17 12:59 Hydromorphone HCl (Dilaudid) 2 mg Q4H PRN SUBQ Moderate Pain (Pain Scale 4-6) 10/15/17 17:00 10/22/17 16:59 10/16/17 16:48 Lorazepam (Ativan) 0.5 mg Q6H PRN SL For Anxiety 10/15/17 18:00 10/22/17 17:59 Magnesium Hydroxide (Mom) 30 ml DAILYPRN PRN ORAL Constipation 10/15/17 16:30 11/14/17 16:29 10/19/17 09:24 Ondansetron HCl (Zofran ODT) 4 mg Q6H PRN ORAL Nausea & Vomiting 10/16/17 17:30 11/15/17 17:29 10/16/17 17:14 Ondansetron HCl (Zofran) 4 mg Q4H PRN IVP Nausea & Vomiting 10/15/17 18:00 11/14/17 17:59 10/15/17 18:04 Oxycodone HCl (OxyCONTIN) 20 mg EVERY 12 HOURS ORAL 10/15/17 21:00 10/22/17 20:59 10/19/17 09:26 Polyethylene Glycol (Miralax) 17 gm TID PRN ORAL Constipation 10/14/17 06:45 11/13/17 06:44 Allergies: Coded Allergies: No Known Allergies (Unverified , 10/14/17) ROS Limited/Unobtainable: No Constitutional: Reports: no symptoms HEENT: Reports: no symptoms Cardiovascular: Reports: no symptoms Respiratory: Reports: no symptoms Gastrointestinal/Abdominal: Reports: no symptoms Genitourinary: Reports: no symptoms Neurologic/Psychiatric: Reports: no symptoms Subjective Late entry for 10/18/17-computer down. 66 YO F admitted with left hip fracture. S/P Left femur ORIF 10/15/17. Cover for Int [facility]-Dr Rao Objective Last Vital Signs Date Time Temp Pulse Resp B/P (MAP) Pulse Ox O2 Delivery O2 Flow Rate FiO2 10/19/17 12:00 98.4 90 18 116/72 98 Room Air 98.4 10/17/17 04:00 2.0 Laboratory Tests Test 10/19/17 06:10 White Blood Count 7.7 K/UL (4.8-10.8) Red Blood Count 3.41 M/UL (4.20-5.40) L Hemoglobin 10.7 G/DL (12.0-16.0) L Hematocrit 31.1 % (37.0-47.0) L Mean Corpuscular Volume 91 FL (80-99) Mean Corpuscular Hemoglobin 31.4 PG (27.0-31.0) H Mean Corpuscular Hemoglobin Concent 34.4 G/DL (32.0-36.0) Red Cell Distribution Width 11.7 % (11.6-14.8) Platelet Count 284 K/UL (150-450) Mean Platelet Volume 7.2 FL (6.5-10.1) Neutrophils (%) (Auto) 48.3 % (45.0-75.0) Lymphocytes (%) (Auto) 27.3 % (20.0-45.0) Monocytes (%) (Auto) 11.8 % (1.0-10.0) H Eosinophils (%) (Auto) 9.6 % (0.0-3.0) H Basophils (%) (Auto) 3.0 % (0.0-2.0) H Intake and Output 10/18/17 10/19/17 19:00 07:00 Intake Total 550 ml 360 ml Balance 550 ml 360 ml Intake Oral 550 ml 360 ml # Voids 1 3 Objective General Appearance: WD/WN, alert, moderate distress EENT: PERRL/EOMI, normal ENT inspection, TMs normal Neck: non-tender, normal alignment, supple Cardiovascular: normal peripheral pulses, normal rate, regular rhythm, no gallop/murmur, no JVD Respiratory/Chest: chest wall non-tender, lungs clear, normal breath sounds, no respiratory distress, no accessory muscle use Abdomen: normal bowel sounds, non tender, soft, no organomegaly, no mass Extremities: normal range of motion, other - tender left hip 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 See ortho note. Physical therapy eval (2) Left hip pain Assessment & Plan: Continue dilaudid or norco prn (3) Post-op pain (4) Postoperative nausea and vomiting Assessment & Plan: PRN zofran Status: progressing Assessment/Plan Discharge planning: [facility] [place] Acute rehab AVALOS,MEREDITH Oct 19, 2017 12:35
--- NOTE | 2017-10-19 12:37 | Internal Med Progress Note ---
Subjective Date of Service: Oct 19, 2017 Physician Name Avalos,Meredith Attending Physician Vern Rao MD Current Medications Medications (Trade) Dose Ordered Sig/Dylon Route PRN Reason Start Time Stop Time Status Last Admin Dose Admin Acetaminophen (Tylenol) 650 mg Q4H PRN ORAL Mild Pain/Temp > 100.5 10/14/17 06:45 11/13/17 06:44 Acetaminophen (Tylenol) 650 mg Q4H PRN ORAL Mild Pain (Pain Scale 1-3) 10/15/17 16:30 11/14/17 16:29 Acetaminophen/ Hydrocodone Bitart ([place] 5/325) 2 tab Q6H PRN ORAL Severe Pain (Pain Scale 7-10) 10/15/17 13:00 10/22/17 12:59 10/19/17 03:54 Acetaminophen/ Hydrocodone Bitart ([place] 7.5/325) 1 tab Q4H PRN ORAL Moderate Pain (Pain Scale 4-6) 10/15/17 13:00 10/22/17 12:59 10/17/17 02:23 Amlodipine Besylate (Norvasc) 5 mg BID ORAL 10/14/17 09:00 11/13/17 08:59 10/19/17 09:25 Diphenhydramine HCl (Benadryl) 25 mg Q8H PRN ORAL Itching 10/17/17 18:15 11/16/17 18:14 10/18/17 23:17 Docusate Sodium (Colace) 100 mg THREE TIMES A DAY ORAL 10/15/17 18:00 11/14/17 17:59 10/19/17 09:25 Enoxaparin Sodium (Lovenox) 30 mg DAILY SUBQ 10/16/17 09:00 10/26/17 08:59 10/19/17 09:26 Ferrous Sulfate (Feosol) 325 mg THREE TIMES A DAY ORAL 10/15/17 18:00 11/14/17 17:59 10/19/17 09:25 Hydromorphone HCl (Dilaudid) 1 mg Q4H PRN SUBQ Mild Pain (Pain Scale 1-3) 10/15/17 13:00 10/22/17 12:59 Hydromorphone HCl (Dilaudid) 2 mg Q4H PRN SUBQ Moderate Pain (Pain Scale 4-6) 10/15/17 17:00 10/22/17 16:59 10/16/17 16:48 Lorazepam (Ativan) 0.5 mg Q6H PRN SL For Anxiety 10/15/17 18:00 10/22/17 17:59 Magnesium Hydroxide (Mom) 30 ml DAILYPRN PRN ORAL Constipation 10/15/17 16:30 11/14/17 16:29 10/19/17 09:24 Ondansetron HCl (Zofran ODT) 4 mg Q6H PRN ORAL Nausea & Vomiting 10/16/17 17:30 11/15/17 17:29 10/16/17 17:14 Ondansetron HCl (Zofran) 4 mg Q4H PRN IVP Nausea & Vomiting 10/15/17 18:00 11/14/17 17:59 10/15/17 18:04 Oxycodone HCl (OxyCONTIN) 20 mg EVERY 12 HOURS ORAL 10/15/17 21:00 10/22/17 20:59 10/19/17 09:26 Polyethylene Glycol (Miralax) 17 gm TID PRN ORAL Constipation 10/14/17 06:45 11/13/17 06:44 Allergies: Coded Allergies: No Known Allergies (Unverified , 10/14/17) Subjective 66 YO F admitted with left hip fracture. S/P Left femur ORIF 10/15/17. Cover for Int [facility]-Dr Rao Objective Last Vital Signs Date Time Temp Pulse Resp B/P (MAP) Pulse Ox O2 Delivery O2 Flow Rate FiO2 10/19/17 12:00 98.4 90 18 116/72 98 Room Air 98.4 10/17/17 04:00 2.0 Laboratory Tests Test 10/19/17 06:10 White Blood Count 7.7 K/UL (4.8-10.8) Red Blood Count 3.41 M/UL (4.20-5.40) L Hemoglobin 10.7 G/DL (12.0-16.0) L Hematocrit 31.1 % (37.0-47.0) L Mean Corpuscular Volume 91 FL (80-99) Mean Corpuscular Hemoglobin 31.4 PG (27.0-31.0) H Mean Corpuscular Hemoglobin Concent 34.4 G/DL (32.0-36.0) Red Cell Distribution Width 11.7 % (11.6-14.8) Platelet Count 284 K/UL (150-450) Mean Platelet Volume 7.2 FL (6.5-10.1) Neutrophils (%) (Auto) 48.3 % (45.0-75.0) Lymphocytes (%) (Auto) 27.3 % (20.0-45.0) Monocytes (%) (Auto) 11.8 % (1.0-10.0) H Eosinophils (%) (Auto) 9.6 % (0.0-3.0) H Basophils (%) (Auto) 3.0 % (0.0-2.0) H Intake and Output 10/18/17 10/19/17 19:00 07:00 Intake Total 550 ml 360 ml Balance 550 ml 360 ml Intake Oral 550 ml 360 ml # Voids 1 3 Objective General Appearance: WD/WN, alert, moderate distress EENT: PERRL/EOMI, normal ENT inspection, TMs normal Neck: non-tender, normal alignment, supple Cardiovascular: normal peripheral pulses, normal rate, regular rhythm, no gallop/murmur, no JVD Respiratory/Chest: chest wall non-tender, lungs clear, normal breath sounds, no respiratory distress, no accessory muscle use Abdomen: normal bowel sounds, non tender, soft, no organomegaly, no mass Extremities: normal range of motion, other - tender left hip 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 See ortho note. Physical therapy eval (2) Left hip pain Assessment & Plan: Continue dilaudid or norco prn (3) Post-op pain (4) Postoperative nausea and vomiting Assessment & Plan: PRN zofran Assessment/Plan Discharge planning: [facility] [place] Acute rehab when accepted. MEREDITH AVALOS Oct 19, 2017 12:37
[2017-10-19 16:01] VITALS: BP 119/73
[2017-10-19 20:01] VITALS: BP 110/83
[2017-10-20 00:55] VITALS: BP 114/77
[2017-10-20 04:00] VITALS: BP 107/71
[2017-10-20 07:27] LABS: BASOPHILS % (AUTO) 2.2 % (0.0-2.0); EOSINOPHILS % (AUTO) 7.5 % (0.0-3.0); HEMOGLOBIN 11.1 G/DL (12.0-16.0); LYMPHOCYTES % (AUTO) 25.9 % (20.0-45.0); MEAN CORPUSCULAR VOLUME 91 FL (80-99); MONOCYTES % (AUTO) 12.2 % (1.0-10.0); NEUTROPHILS % (AUTO) 52.3 % (45.0-75.0); PLATELET COUNT 324 K/UL (150-450); RED BLOOD COUNT 3.52 M/UL (4.20-5.40); RED CELL DISTRIBUTION WIDTH 11.6 % (11.6-14.8); WHITE BLOOD COUNT 8.2 K/UL (4.8-10.8)
[2017-10-20 07:58] LABS: ANION GAP 5 mmol/L (5-15); BLOOD UREA NITROGEN 14 mg/dL (7-18); CARBON DIOXIDE 33 MMOL/L (21-32); CHLORIDE 103 MMOL/L (98-107); CREATININE 0.5 MG/DL (0.55-1.30); POTASSIUM 4.5 MMOL/L (3.5-5.1); SODIUM 140 MMOL/L (136-145)
[2017-10-20 08:00] VITALS: BP 106/68
[2017-10-20] MEDS: Docusate 100mg cap ORAL SCH ×3 (08:23→17:05)
[2017-10-20] MEDS: oxyCONTIN 20mg tab ORAL SCH ×2 (08:24→20:50)
[2017-10-20] MEDS: Enoxaparin 30mg Inj SUBQ SCH (08:25)
[2017-10-20 11:33] VITALS: BP 113/65
--- NOTE | 2017-10-20 11:59 | Internal Med Progress Note ---
Subjective Date of Service: Oct 20, 2017 Physician Name Avalos,Meredith Attending Physician Vern Rao MD Current Medications Medications (Trade) Dose Ordered Sig/Dylon Route PRN Reason Start Time Stop Time Status Last Admin Dose Admin Acetaminophen (Tylenol) 650 mg Q4H PRN ORAL Mild Pain/Temp > 100.5 10/14/17 06:45 11/13/17 06:44 Acetaminophen (Tylenol) 650 mg Q4H PRN ORAL Mild Pain (Pain Scale 1-3) 10/15/17 16:30 11/14/17 16:29 Acetaminophen/ Hydrocodone Bitart ([place] 5/325) 2 tab Q6H PRN ORAL Severe Pain (Pain Scale 7-10) 10/15/17 13:00 10/22/17 12:59 10/19/17 03:54 Acetaminophen/ Hydrocodone Bitart ([place] 7.5/325) 1 tab Q4H PRN ORAL Moderate Pain (Pain Scale 4-6) 10/15/17 13:00 10/22/17 12:59 10/17/17 02:23 Amlodipine Besylate (Norvasc) 5 mg BID ORAL 10/14/17 09:00 11/13/17 08:59 10/20/17 08:23 Diphenhydramine HCl (Benadryl) 25 mg Q8H PRN ORAL Itching 10/17/17 18:15 11/16/17 18:14 10/18/17 23:17 Docusate Sodium (Colace) 100 mg THREE TIMES A DAY ORAL 10/15/17 18:00 11/14/17 17:59 10/20/17 08:23 Enoxaparin Sodium (Lovenox) 30 mg DAILY SUBQ 10/16/17 09:00 10/26/17 08:59 10/20/17 08:25 Ferrous Sulfate (Feosol) 325 mg THREE TIMES A DAY ORAL 10/15/17 18:00 11/14/17 17:59 10/20/17 08:23 Hydromorphone HCl (Dilaudid) 1 mg Q4H PRN SUBQ Mild Pain (Pain Scale 1-3) 10/15/17 13:00 10/22/17 12:59 Hydromorphone HCl (Dilaudid) 2 mg Q4H PRN SUBQ Moderate Pain (Pain Scale 4-6) 10/15/17 17:00 10/22/17 16:59 10/16/17 16:48 Lorazepam (Ativan) 0.5 mg Q6H PRN SL For Anxiety 10/15/17 18:00 10/22/17 17:59 Magnesium Hydroxide (Mom) 30 ml DAILYPRN PRN ORAL Constipation 10/15/17 16:30 11/14/17 16:29 10/19/17 09:24 Ondansetron HCl (Zofran ODT) 4 mg Q6H PRN ORAL Nausea & Vomiting 10/16/17 17:30 11/15/17 17:29 10/16/17 17:14 Ondansetron HCl (Zofran) 4 mg Q4H PRN IVP Nausea & Vomiting 10/15/17 18:00 11/14/17 17:59 10/15/17 18:04 Oxycodone HCl (OxyCONTIN) 20 mg EVERY 12 HOURS ORAL 10/15/17 21:00 10/22/17 20:59 10/20/17 08:24 Polyethylene Glycol (Miralax) 17 gm TID PRN ORAL Constipation 10/14/17 06:45 11/13/17 06:44 Allergies: Coded Allergies: No Known Allergies (Unverified , 10/14/17) ROS Limited/Unobtainable: No Constitutional: Reports: no symptoms HEENT: Reports: no symptoms Cardiovascular: Reports: no symptoms Respiratory: Reports: no symptoms Gastrointestinal/Abdominal: Reports: no symptoms Genitourinary: Reports: no symptoms Neurologic/Psychiatric: Reports: no symptoms Subjective 66 YO F admitted with left hip fracture. S/P Left femur ORIF 10/15/17. Cover for Int Med-Dr Rao. Await acceptance to acute rehab Objective Last Vital Signs Date Time Temp Pulse Resp B/P (MAP) Pulse Ox O2 Delivery O2 Flow Rate FiO2 10/20/17 11:33 97.6 99 18 113/65 96 97.6 10/19/17 16:01 Room Air 10/17/17 04:00 2.0 Laboratory Tests Test 10/20/17 06:30 White Blood Count 8.2 K/UL (4.8-10.8) Red Blood Count 3.52 M/UL (4.20-5.40) L Hemoglobin 11.1 G/DL (12.0-16.0) L Hematocrit 32.0 % (37.0-47.0) L Mean Corpuscular Volume 91 FL (80-99) Mean Corpuscular Hemoglobin 31.4 PG (27.0-31.0) H Mean Corpuscular Hemoglobin Concent 34.6 G/DL (32.0-36.0) Red Cell Distribution Width 11.6 % (11.6-14.8) Platelet Count 324 K/UL (150-450) Mean Platelet Volume 6.9 FL (6.5-10.1) Neutrophils (%) (Auto) 52.3 % (45.0-75.0) Lymphocytes (%) (Auto) 25.9 % (20.0-45.0) Monocytes (%) (Auto) 12.2 % (1.0-10.0) H Eosinophils (%) (Auto) 7.5 % (0.0-3.0) H Basophils (%) (Auto) 2.2 % (0.0-2.0) H Sodium Level 140 MMOL/L (136-145) Potassium Level 4.5 MMOL/L (3.5-5.1) Chloride Level 103 MMOL/L (98-107) Carbon Dioxide Level 33 MMOL/L (21-32) H Anion Gap 5 mmol/L (5-15) Blood Urea Nitrogen 14 mg/dL (7-18) Creatinine 0.5 MG/DL (0.55-1.30) L Estimat Glomerular Filtration Rate > 60 mL/min (>60) Glucose Level 117 MG/DL (74-106) H Calcium Level 9.0 MG/DL (8.5-10.1) Intake and Output 10/19/17 10/20/17 19:00 07:00 Intake Total 600 ml 480 ml Balance 600 ml 480 ml Intake Oral 600 ml 480 ml # Voids 3 3 Objective General Appearance: WD/WN, alert, moderate distress EENT: PERRL/EOMI, normal ENT inspection, TMs normal Neck: non-tender, normal alignment, supple Cardiovascular: normal peripheral pulses, normal rate, regular rhythm, no gallop/murmur, no JVD Respiratory/Chest: chest wall non-tender, lungs clear, normal breath sounds, no respiratory distress, no accessory muscle use Abdomen: normal bowel sounds, non tender, soft, no organomegaly, no mass Extremities: normal range of motion, other - tender left hip 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 See ortho note. Physical therapy eval (2) Left hip pain Assessment & Plan: Continue dilaudid or norco prn (3) Post-op pain (4) Postoperative nausea and vomiting Assessment & Plan: PRN zofran Assessment/Plan Discharge planning: [facility] [place] Acute rehab when accepted. MEREDITH AVALOS Oct 20, 2017 11:59
[2017-10-20] MEDS: Milk of Magnesia 30ml Ud ORAL PRN (13:15)
[2017-10-20 16:00] VITALS: BP 112/66
[2017-10-20 20:00] VITALS: BP 119/62
[2017-10-21] VITALS (7 sets, daily range): BP systolic 104–123; BP diastolic 60–95
[2017-10-21 05:46] LABS: BASOPHILS % (AUTO) 2.2 % (0.0-2.0); EOSINOPHILS % (AUTO) 7.9 % (0.0-3.0); HEMATOCRIT 34.1 % (37.0-47.0); HEMOGLOBIN 11.3 G/DL (12.0-16.0); LYMPHOCYTES % (AUTO) 25.2 % (20.0-45.0); MEAN CORPUSCULAR VOLUME 90 FL (80-99); MONOCYTES % (AUTO) 9.3 % (1.0-10.0); NEUTROPHILS % (AUTO) 55.3 % (45.0-75.0); PLATELET COUNT 363 K/UL (150-450); RED BLOOD COUNT 3.78 M/UL (4.20-5.40); RED CELL DISTRIBUTION WIDTH 11.8 % (11.6-14.8); WHITE BLOOD COUNT 8.6 K/UL (4.8-10.8)
[2017-10-21 06:11] LABS: BLOOD UREA NITROGEN 11 mg/dL (7-18); CALCIUM 9.2 MG/DL (8.5-10.1); CARBON DIOXIDE 30 MMOL/L (21-32); CREATININE 0.5 MG/DL (0.55-1.30)
[2017-10-21 07:21] LABS: CHLORIDE 103 MMOL/L (98-107); POTASSIUM 4.1 MMOL/L (3.5-5.1); SODIUM 139 MMOL/L (136-145)
[2017-10-21 07:23] LABS: ANION GAP 6 mmol/L (5-15)
[2017-10-21] MEDS: Docusate 100mg cap ORAL SCH ×3 (09:45→17:33)
[2017-10-21] MEDS: oxyCONTIN 20mg tab ORAL SCH ×2 (09:46→21:04)
[2017-10-21] MEDS: Enoxaparin 30mg Inj SUBQ SCH (09:47)
--- NOTE | 2017-10-21 12:12 | Internal Med Progress Note ---
Subjective Date of Service: Oct 21, 2017 Physician Name SarahMeredith Attending Physician Vern Rao MD Current Medications Medications (Trade) Dose Ordered Sig/Dylon Route PRN Reason Start Time Stop Time Status Last Admin Dose Admin Acetaminophen (Tylenol) 650 mg Q4H PRN ORAL Mild Pain/Temp > 100.5 10/14/17 06:45 11/13/17 06:44 Acetaminophen (Tylenol) 650 mg Q4H PRN ORAL Mild Pain (Pain Scale 1-3) 10/15/17 16:30 11/14/17 16:29 Acetaminophen/ Hydrocodone Bitart ([place] 5/325) 2 tab Q6H PRN ORAL Severe Pain (Pain Scale 7-10) 10/15/17 13:00 10/22/17 12:59 10/19/17 03:54 Acetaminophen/ Hydrocodone Bitart ([place] 7.5/325) 1 tab Q4H PRN ORAL Moderate Pain (Pain Scale 4-6) 10/15/17 13:00 10/22/17 12:59 10/17/17 02:23 Amlodipine Besylate (Norvasc) 5 mg BID ORAL 10/14/17 09:00 11/13/17 08:59 10/21/17 09:46 Diphenhydramine HCl (Benadryl) 25 mg Q8H PRN ORAL Itching 10/17/17 18:15 11/16/17 18:14 10/18/17 23:17 Docusate Sodium (Colace) 100 mg THREE TIMES A DAY ORAL 10/15/17 18:00 11/14/17 17:59 10/21/17 09:45 Enoxaparin Sodium (Lovenox) 30 mg DAILY SUBQ 10/16/17 09:00 10/26/17 08:59 10/21/17 09:47 Ferrous Sulfate (Feosol) 325 mg THREE TIMES A DAY ORAL 10/15/17 18:00 11/14/17 17:59 10/21/17 09:46 Hydromorphone HCl (Dilaudid) 1 mg Q4H PRN SUBQ Mild Pain (Pain Scale 1-3) 10/15/17 13:00 10/22/17 12:59 Hydromorphone HCl (Dilaudid) 2 mg Q4H PRN SUBQ Moderate Pain (Pain Scale 4-6) 10/15/17 17:00 10/22/17 16:59 10/16/17 16:48 Lorazepam (Ativan) 0.5 mg Q6H PRN SL For Anxiety 10/15/17 18:00 10/22/17 17:59 Magnesium Hydroxide (Mom) 30 ml DAILYPRN PRN ORAL Constipation 10/15/17 16:30 11/14/17 16:29 10/20/17 13:15 Ondansetron HCl (Zofran ODT) 4 mg Q6H PRN ORAL Nausea & Vomiting 10/16/17 17:30 11/15/17 17:29 10/16/17 17:14 Ondansetron HCl (Zofran) 4 mg Q4H PRN IVP Nausea & Vomiting 10/15/17 18:00 11/14/17 17:59 10/15/17 18:04 Oxycodone HCl (OxyCONTIN) 20 mg EVERY 12 HOURS ORAL 10/15/17 21:00 10/22/17 20:59 10/21/17 09:46 Polyethylene Glycol (Miralax) 17 gm TID PRN ORAL Constipation 10/14/17 06:45 11/13/17 06:44 Allergies: Coded Allergies: No Known Allergies (Unverified , 10/14/17) ROS Limited/Unobtainable: No Constitutional: Reports: no symptoms HEENT: Reports: no symptoms Cardiovascular: Reports: no symptoms Respiratory: Reports: no symptoms Gastrointestinal/Abdominal: Reports: no symptoms Genitourinary: Reports: no symptoms Neurologic/Psychiatric: Reports: no symptoms Subjective 66 YO F admitted with left hip fracture. S/P Left femur ORIF 10/15/17. Cover for Int Med-Dr Rao. Await acceptance to acute rehab Objective Last Vital Signs Date Time Temp Pulse Resp B/P (MAP) Pulse Ox O2 Delivery O2 Flow Rate FiO2 10/21/17 09:46 98.2 10/21/17 09:46 82 116/60 10/21/17 08:00 20 98 Room Air 10/17/17 04:00 2.0 Laboratory Tests Test 10/21/17 05:20 White Blood Count 8.6 K/UL (4.8-10.8) Red Blood Count 3.78 M/UL (4.20-5.40) L Hemoglobin 11.3 G/DL (12.0-16.0) L Hematocrit 34.1 % (37.0-47.0) L Mean Corpuscular Volume 90 FL (80-99) Mean Corpuscular Hemoglobin 30.0 PG (27.0-31.0) Mean Corpuscular Hemoglobin Concent 33.2 G/DL (32.0-36.0) Red Cell Distribution Width 11.8 % (11.6-14.8) Platelet Count 363 K/UL (150-450) Mean Platelet Volume 6.6 FL (6.5-10.1) Neutrophils (%) (Auto) 55.3 % (45.0-75.0) Lymphocytes (%) (Auto) 25.2 % (20.0-45.0) Monocytes (%) (Auto) 9.3 % (1.0-10.0) Eosinophils (%) (Auto) 7.9 % (0.0-3.0) H Basophils (%) (Auto) 2.2 % (0.0-2.0) H Sodium Level 139 MMOL/L (136-145) Potassium Level 4.1 MMOL/L (3.5-5.1) Chloride Level 103 MMOL/L (98-107) Carbon Dioxide Level 30 MMOL/L (21-32) Anion Gap 6 mmol/L (5-15) Blood Urea Nitrogen 11 mg/dL (7-18) Creatinine 0.5 MG/DL (0.55-1.30) L Estimat Glomerular Filtration Rate > 60 mL/min (>60) Glucose Level 106 MG/DL (74-106) Calcium Level 9.2 MG/DL (8.5-10.1) Intake and Output 10/20/17 10/21/17 19:00 07:00 Intake Total 800 ml 660 ml Balance 800 ml 660 ml Intake Oral 800 ml 660 ml # Voids 4 3 Objective General Appearance: WD/WN, alert, moderate distress EENT: PERRL/EOMI, normal ENT inspection, TMs normal Neck: non-tender, normal alignment, supple Cardiovascular: normal peripheral pulses, normal rate, regular rhythm, no gallop/murmur, no JVD Respiratory/Chest: chest wall non-tender, lungs clear, normal breath sounds, no respiratory distress, no accessory muscle use Abdomen: normal bowel sounds, non tender, soft, no organomegaly, no mass Extremities: normal range of motion, other - tender left hip 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 See ortho note. Physical therapy eval (2) Left hip pain Assessment & Plan: Continue dilaudid or norco prn (3) Post-op pain (4) Postoperative nausea and vomiting Assessment & Plan: PRN zofran Status: stable Assessment/Plan Discharge planning: [facility] [place] Acute rehab when accepted. MEREDITH AVALOS Oct 21, 2017 12:12
--- NOTE | 2017-10-21 15:06 | Pulmonology Progress Note ---
Assessment/Plan Problems: (1) Intertrochanteric fracture of left femur (2) Social isolation Assessment/Plan awaiting placement symptomatic treatment dvt prophylaxis pt/ot Subjective ROS Limited/Unobtainable: No Constitutional: Reports: no symptoms HEENT: Repors: no symptoms Respiratory: Reports: no symptoms Cardiovascular: Reports: no symptoms Allergies: Coded Allergies: No Known Allergies (Unverified , 10/14/17) Objective Last 24 Hour Vital Signs Date Time Temp Pulse Resp B/P (MAP) Pulse Ox O2 Delivery O2 Flow Rate FiO2 10/21/17 12:00 98.2 89 18 112/62 98 Room Air 98.2 10/21/17 09:46 98.2 10/21/17 09:46 82 116/60 10/21/17 08:00 97.3 93 20 110/66 98 Room Air 97.3 10/21/17 04:00 98.2 82 17 116/60 98 Room Air 98.2 10/21/17 00:00 98.0 80 18 118/64 98 Room Air 98.0 10/20/17 20:00 98.0 88 17 119/62 97 Room Air 98.0 10/20/17 17:06 87 112/67 10/20/17 16:00 98.2 87 16 112/66 96 98.2 Intake and Output 10/20/17 10/21/17 19:00 07:00 Intake Total 800 ml 660 ml Balance 800 ml 660 ml Intake Oral 800 ml 660 ml # Voids 4 3 General Appearance: WD/WN HEENT: normocephalic, anicteric Respiratory/Chest: chest wall non-tender, normal breath sounds Breasts: no masses Cardiovascular: normal peripheral pulses, normal rate Genitourinary: normal external genitalia Extremities: no clubbing 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 Lymphatic: no neck adenopathy Laboratory Tests 10/21/17 05:20: White Blood Count 8.6, Red Blood Count 3.78L, Hemoglobin 11.3L, Hematocrit 34.1L , Mean Corpuscular Volume 90, Mean Corpuscular Hemoglobin 30.0, Mean Corpuscular Hemoglobin Concent 33.2, Red Cell Distribution Width 11.8, Platelet Count 363, Mean Platelet Volume 6.6, Neutrophils (%) (Auto) 55.3, Lymphocytes (% ) (Auto) 25.2, Monocytes (%) (Auto) 9.3, Eosinophils (%) (Auto) 7.9H, Basophils (%) (Auto) 2.2H, Sodium Level 139, Potassium Level 4.1, Chloride Level 103, Carbon Dioxide Level 30, Anion Gap 6, Blood Urea Nitrogen 11, Creatinine 0.5L, Estimat Glomerular Filtration Rate > 60, Glucose Level 106, Calcium Level 9.2 Current Medications Medications (Trade) Dose Ordered Sig/Dylon Route PRN Reason Start Time Stop Time Status Last Admin Dose Admin Acetaminophen (Tylenol) 650 mg Q4H PRN ORAL Mild Pain/Temp > 100.5 10/14/17 06:45 11/13/17 06:44 Acetaminophen (Tylenol) 650 mg Q4H PRN ORAL Mild Pain (Pain Scale 1-3) 10/15/17 16:30 11/14/17 16:29 Acetaminophen/ Hydrocodone Bitart ([place] 5/325) 2 tab Q6H PRN ORAL Severe Pain (Pain Scale 7-10) 10/15/17 13:00 10/22/17 12:59 10/19/17 03:54 Acetaminophen/ Hydrocodone Bitart ([place] 7.5/325) 1 tab Q4H PRN ORAL Moderate Pain (Pain Scale 4-6) 10/15/17 13:00 10/22/17 12:59 10/17/17 02:23 Amlodipine Besylate (Norvasc) 5 mg BID ORAL 10/14/17 09:00 11/13/17 08:59 10/21/17 09:46 Diphenhydramine HCl (Benadryl) 25 mg Q8H PRN ORAL Itching 10/17/17 18:15 11/16/17 18:14 10/18/17 23:17 Docusate Sodium (Colace) 100 mg THREE TIMES A DAY ORAL 10/15/17 18:00 11/14/17 17:59 10/21/17 14:02 Enoxaparin Sodium (Lovenox) 30 mg DAILY SUBQ 10/16/17 09:00 10/26/17 08:59 10/21/17 09:47 Ferrous Sulfate (Feosol) 325 mg THREE TIMES A DAY ORAL 10/15/17 18:00 11/14/17 17:59 10/21/17 14:02 Hydromorphone HCl (Dilaudid) 1 mg Q4H PRN SUBQ Mild Pain (Pain Scale 1-3) 10/15/17 13:00 10/22/17 12:59 Hydromorphone HCl (Dilaudid) 2 mg Q4H PRN SUBQ Moderate Pain (Pain Scale 4-6) 10/15/17 17:00 10/22/17 16:59 10/16/17 16:48 Lorazepam (Ativan) 0.5 mg Q6H PRN SL For Anxiety 10/15/17 18:00 10/22/17 17:59 Magnesium Hydroxide (Mom) 30 ml DAILYPRN PRN ORAL Constipation 10/15/17 16:30 11/14/17 16:29 10/20/17 13:15 Ondansetron HCl (Zofran ODT) 4 mg Q6H PRN ORAL Nausea & Vomiting 10/16/17 17:30 11/15/17 17:29 10/16/17 17:14 Ondansetron HCl (Zofran) 4 mg Q4H PRN IVP Nausea & Vomiting 10/15/17 18:00 11/14/17 17:59 10/15/17 18:04 Oxycodone HCl (OxyCONTIN) 20 mg EVERY 12 HOURS ORAL 10/15/17 21:00 10/22/17 20:59 10/21/17 09:46 Polyethylene Glycol (Miralax) 17 gm TID PRN ORAL Constipation 10/14/17 06:45 11/13/17 06:44 John Metcalf MD Oct 21, 2017 15:06
[2017-10-21] MEDS: HYDROcodone/Acetamin 7.5/325 tab ORAL PRN (17:33)
[2017-10-22 04:00] VITALS: BP 126/74
[2017-10-22 07:27] LABS: ANION GAP 6 mmol/L (5-15); BLOOD UREA NITROGEN 11 mg/dL (7-18); CALCIUM 8.7 MG/DL (8.5-10.1); CARBON DIOXIDE 32 MMOL/L (21-32); CHLORIDE 100 MMOL/L (98-107); CREATININE 0.5 MG/DL (0.55-1.30); POTASSIUM 4.4 MMOL/L (3.5-5.1); SODIUM 137 MMOL/L (136-145)
[2017-10-22 07:37] LABS: BASOPHILS % (AUTO) 1.8 % (0.0-2.0); EOSINOPHILS % (AUTO) 7.8 % (0.0-3.0); HEMOGLOBIN 11.2 G/DL (12.0-16.0); LYMPHOCYTES % (AUTO) 29.6 % (20.0-45.0); MEAN CORPUSCULAR VOLUME 91 FL (80-99); MONOCYTES % (AUTO) 9.5 % (1.0-10.0); NEUTROPHILS % (AUTO) 51.4 % (45.0-75.0); PLATELET COUNT 366 K/UL (150-450); RED BLOOD COUNT 3.62 M/UL (4.20-5.40); RED CELL DISTRIBUTION WIDTH 11.7 % (11.6-14.8); WHITE BLOOD COUNT 8.1 K/UL (4.8-10.8)
[2017-10-22 08:00] VITALS: BP 112/69
[2017-10-22] MEDS: Docusate 100mg cap ORAL SCH ×3 (08:45→17:19)
[2017-10-22] MEDS: oxyCONTIN 20mg tab ORAL SCH ×2 (08:45→21:38)
[2017-10-22] MEDS: Enoxaparin 30mg Inj SUBQ SCH (08:46)
[2017-10-22 11:48] VITALS: BP 118/82
[2017-10-22 16:00] VITALS: BP 107/69
--- NOTE | 2017-10-22 17:21 | Internal Med Progress Note ---
Subjective Date of Service: Oct 22, 2017 Physician Name Chauncey Avalos Attending Physician Vern Rao MD Current Medications Medications (Trade) Dose Ordered Sig/Dylon Route PRN Reason Start Time Stop Time Status Last Admin Dose Admin Acetaminophen (Tylenol) 650 mg Q4H PRN ORAL Mild Pain/Temp > 100.5 10/14/17 06:45 11/13/17 06:44 Acetaminophen (Tylenol) 650 mg Q4H PRN ORAL Mild Pain (Pain Scale 1-3) 10/15/17 16:30 11/14/17 16:29 Amlodipine Besylate (Norvasc) 5 mg BID ORAL 10/14/17 09:00 11/13/17 08:59 10/21/17 17:33 Diphenhydramine HCl (Benadryl) 25 mg Q8H PRN ORAL Itching 10/17/17 18:15 11/16/17 18:14 10/18/17 23:17 Docusate Sodium (Colace) 100 mg THREE TIMES A DAY ORAL 10/15/17 18:00 11/14/17 17:59 10/22/17 17:19 Enoxaparin Sodium (Lovenox) 30 mg DAILY SUBQ 10/16/17 09:00 10/26/17 08:59 10/22/17 08:46 Ferrous Sulfate (Feosol) 325 mg THREE TIMES A DAY ORAL 10/15/17 18:00 11/14/17 17:59 10/22/17 17:19 Lorazepam (Ativan) 0.5 mg Q6H PRN SL For Anxiety 10/15/17 18:00 10/22/17 17:59 Magnesium Hydroxide (Mom) 30 ml DAILYPRN PRN ORAL Constipation 10/15/17 16:30 11/14/17 16:29 10/20/17 13:15 Ondansetron HCl (Zofran ODT) 4 mg Q6H PRN ORAL Nausea & Vomiting 10/16/17 17:30 11/15/17 17:29 10/16/17 17:14 Ondansetron HCl (Zofran) 4 mg Q4H PRN IVP Nausea & Vomiting 10/15/17 18:00 11/14/17 17:59 10/15/17 18:04 Oxycodone HCl (OxyCONTIN) 20 mg EVERY 12 HOURS ORAL 10/15/17 21:00 10/22/17 20:59 10/22/17 08:45 Polyethylene Glycol (Miralax) 17 gm TID PRN ORAL Constipation 10/14/17 06:45 11/13/17 06:44 Allergies: Coded Allergies: No Known Allergies (Unverified , 10/14/17) ROS Limited/Unobtainable: No Constitutional: Reports: no symptoms HEENT: Reports: no symptoms Cardiovascular: Reports: no symptoms Respiratory: Reports: no symptoms Gastrointestinal/Abdominal: Reports: no symptoms Genitourinary: Reports: no symptoms Neurologic/Psychiatric: Reports: no symptoms Subjective 66 YO F admitted with left hip fracture. S/P Left femur ORIF 10/15/17. Cover for Int Med-Dr Rao. Await acceptance to acute rehab Objective Last Vital Signs Date Time Temp Pulse Resp B/P (MAP) Pulse Ox O2 Delivery O2 Flow Rate FiO2 10/22/17 16:00 98.0 92 19 107/69 95 Room Air 98.0 10/17/17 04:00 2.0 Laboratory Tests Test 10/22/17 05:00 White Blood Count 8.1 K/UL (4.8-10.8) Red Blood Count 3.62 M/UL (4.20-5.40) L Hemoglobin 11.2 G/DL (12.0-16.0) L Hematocrit 33.0 % (37.0-47.0) L Mean Corpuscular Volume 91 FL (80-99) Mean Corpuscular Hemoglobin 30.9 PG (27.0-31.0) Mean Corpuscular Hemoglobin Concent 33.9 G/DL (32.0-36.0) Red Cell Distribution Width 11.7 % (11.6-14.8) Platelet Count 366 K/UL (150-450) Mean Platelet Volume 6.2 FL (6.5-10.1) L Neutrophils (%) (Auto) 51.4 % (45.0-75.0) Lymphocytes (%) (Auto) 29.6 % (20.0-45.0) Monocytes (%) (Auto) 9.5 % (1.0-10.0) Eosinophils (%) (Auto) 7.8 % (0.0-3.0) H Basophils (%) (Auto) 1.8 % (0.0-2.0) Sodium Level 137 MMOL/L (136-145) Potassium Level 4.4 MMOL/L (3.5-5.1) Chloride Level 100 MMOL/L (98-107) Carbon Dioxide Level 32 MMOL/L (21-32) Anion Gap 6 mmol/L (5-15) Blood Urea Nitrogen 11 mg/dL (7-18) Creatinine 0.5 MG/DL (0.55-1.30) L Estimat Glomerular Filtration Rate > 60 mL/min (>60) Glucose Level 98 MG/DL (74-106) Calcium Level 8.7 MG/DL (8.5-10.1) Intake and Output 10/21/17 10/22/17 19:00 07:00 Intake Total 800 ml 360 ml Balance 800 ml 360 ml Intake Oral 800 ml 360 ml # Voids 4 3 Objective General Appearance: WD/WN, alert, moderate distress EENT: PERRL/EOMI, normal ENT inspection, TMs normal Neck: non-tender, normal alignment, supple Cardiovascular: normal peripheral pulses, normal rate, regular rhythm, no gallop/murmur, no JVD Respiratory/Chest: chest wall non-tender, lungs clear, normal breath sounds, no respiratory distress, no accessory muscle use Abdomen: normal bowel sounds, non tender, soft, no organomegaly, no mass Extremities: normal range of motion, other - tender left hip 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 See ortho note. Physical therapy eval (2) Left hip pain Assessment & Plan: Continue dilaudid or norco prn (3) Post-op pain (4) Postoperative nausea and vomiting Assessment & Plan: PRN zofran Assessment/Plan Discharge planning: [facility] [place] Acute rehab when accepted. CHAUNCEY AVALOS Oct 22, 2017 17:21
--- NOTE | 2017-10-22 19:13 | Pulmonology Progress Note ---
Assessment/Plan Problems: (1) Intertrochanteric fracture of left femur (2) Social isolation Assessment/Plan awaiting placement symptomatic treatment dvt prophylaxis pt/ot doing better might go home soon. Subjective ROS Limited/Unobtainable: No Allergies: Coded Allergies: No Known Allergies (Unverified , 10/14/17) Objective Last 24 Hour Vital Signs Date Time Temp Pulse Resp B/P (MAP) Pulse Ox O2 Delivery O2 Flow Rate FiO2 10/22/17 17:20 98 112/72 10/22/17 16:00 98.0 92 19 107/69 95 Room Air 98.0 10/22/17 11:48 98.4 104 18 118/82 97 Room Air 98.4 10/22/17 08:47 93 112/69 10/22/17 08:00 98.0 93 18 112/69 96 98.0 10/22/17 04:00 97.9 99 18 126/74 97 97.9 10/21/17 23:51 98.8 100 19 120/83 96 98.8 10/21/17 20:20 99.0 110 20 123/95 95 99.0 Intake and Output 10/21/17 10/22/17 19:00 07:00 Intake Total 800 ml 360 ml Balance 800 ml 360 ml Intake Oral 800 ml 360 ml # Voids 4 3 Objective General Appearance: WD/WN Lines, tubes and drains: peripheral HEENT: normocephalic, atraumatic Neck: non-tender, normal alignment Respiratory/Chest: chest wall non-tender, lungs clear Breasts: no masses Cardiovascular/Chest: normal rate, regularly irregular Genitourinary/Rectal: normal genital exam, heme negative stool Extremities: normal range of motion Laboratory Tests 10/22/17 05:00: White Blood Count 8.1, Red Blood Count 3.62L, Hemoglobin 11.2L, Hematocrit 33.0L , Mean Corpuscular Volume 91, Mean Corpuscular Hemoglobin 30.9, Mean Corpuscular Hemoglobin Concent 33.9, Red Cell Distribution Width 11.7, Platelet Count 366, Mean Platelet Volume 6.2L, Neutrophils (%) (Auto) 51.4, Lymphocytes ( %) (Auto) 29.6, Monocytes (%) (Auto) 9.5, Eosinophils (%) (Auto) 7.8H, Basophils (%) (Auto) 1.8, Sodium Level 137, Potassium Level 4.4, Chloride Level 100, Carbon Dioxide Level 32, Anion Gap 6, Blood Urea Nitrogen 11, Creatinine 0.5L, Estimat Glomerular Filtration Rate > 60, Glucose Level 98, Calcium Level 8.7 Current Medications Medications (Trade) Dose Ordered Sig/Dylon Route PRN Reason Start Time Stop Time Status Last Admin Dose Admin Acetaminophen (Tylenol) 650 mg Q4H PRN ORAL Mild Pain/Temp > 100.5 10/14/17 06:45 11/13/17 06:44 Acetaminophen (Tylenol) 650 mg Q4H PRN ORAL Mild Pain (Pain Scale 1-3) 10/15/17 16:30 11/14/17 16:29 Amlodipine Besylate (Norvasc) 5 mg BID ORAL 10/14/17 09:00 11/13/17 08:59 10/21/17 17:33 Diphenhydramine HCl (Benadryl) 25 mg Q8H PRN ORAL Itching 10/17/17 18:15 11/16/17 18:14 10/18/17 23:17 Docusate Sodium (Colace) 100 mg THREE TIMES A DAY ORAL 10/15/17 18:00 11/14/17 17:59 10/22/17 17:19 Enoxaparin Sodium (Lovenox) 30 mg DAILY SUBQ 10/16/17 09:00 10/26/17 08:59 10/22/17 08:46 Ferrous Sulfate (Feosol) 325 mg THREE TIMES A DAY ORAL 10/15/17 18:00 11/14/17 17:59 10/22/17 17:19 Magnesium Hydroxide (Mom) 30 ml DAILYPRN PRN ORAL Constipation 10/15/17 16:30 11/14/17 16:29 10/20/17 13:15 Ondansetron HCl (Zofran ODT) 4 mg Q6H PRN ORAL Nausea & Vomiting 10/16/17 17:30 11/15/17 17:29 10/16/17 17:14 Ondansetron HCl (Zofran) 4 mg Q4H PRN IVP Nausea & Vomiting 10/15/17 18:00 11/14/17 17:59 10/15/17 18:04 Oxycodone HCl (OxyCONTIN) 20 mg EVERY 12 HOURS ORAL 10/15/17 21:00 10/22/17 20:59 10/22/17 08:45 Polyethylene Glycol (Miralax) 17 gm TID PRN ORAL Constipation 10/14/17 06:45 11/13/17 06:44 John Metcalf MD Oct 22, 2017 19:13
[2017-10-22 20:00] VITALS: BP 113/70
[2017-10-23] VITALS: BP 110/68
[2017-10-23 04:00] VITALS: BP 110/69
[2017-10-23 07:50] VITALS: BP 114/58
[2017-10-23] MEDS: oxyCONTIN 20mg tab ORAL SCH ×2 (08:29→21:20)
[2017-10-23] MEDS: Docusate 100mg cap ORAL SCH ×3 (08:29→17:26)
[2017-10-23] MEDS: Enoxaparin 30mg Inj SUBQ SCH (08:36)
--- NOTE | 2017-10-23 11:27 | Internal Med Progress Note ---
Subjective Date of Service: Oct 23, 2017 Physician Name Chauncey Avalos Attending Physician Vern Rao MD Current Medications Medications (Trade) Dose Ordered Sig/Dylon Route PRN Reason Start Time Stop Time Status Last Admin Dose Admin Acetaminophen (Tylenol) 650 mg Q4H PRN ORAL Mild Pain/Temp > 100.5 10/14/17 06:45 11/13/17 06:44 Acetaminophen (Tylenol) 650 mg Q4H PRN ORAL Mild Pain (Pain Scale 1-3) 10/15/17 16:30 11/14/17 16:29 10/23/17 10:57 Amlodipine Besylate (Norvasc) 5 mg BID ORAL 10/14/17 09:00 11/13/17 08:59 10/21/17 17:33 Diphenhydramine HCl (Benadryl) 25 mg Q8H PRN ORAL Itching 10/17/17 18:15 11/16/17 18:14 10/18/17 23:17 Docusate Sodium (Colace) 100 mg THREE TIMES A DAY ORAL 10/15/17 18:00 11/14/17 17:59 10/23/17 08:29 Enoxaparin Sodium (Lovenox) 30 mg DAILY SUBQ 10/16/17 09:00 10/26/17 08:59 10/23/17 08:36 Ferrous Sulfate (Feosol) 325 mg THREE TIMES A DAY ORAL 10/15/17 18:00 11/14/17 17:59 10/23/17 08:29 Magnesium Hydroxide (Mom) 30 ml DAILYPRN PRN ORAL Constipation 10/15/17 16:30 11/14/17 16:29 10/20/17 13:15 Ondansetron HCl (Zofran ODT) 4 mg Q6H PRN ORAL Nausea & Vomiting 10/16/17 17:30 11/15/17 17:29 10/16/17 17:14 Ondansetron HCl (Zofran) 4 mg Q4H PRN IVP Nausea & Vomiting 10/15/17 18:00 11/14/17 17:59 10/15/17 18:04 Oxycodone HCl (OxyCONTIN) 20 mg Q12HR ORAL 10/22/17 22:00 10/29/17 21:59 10/23/17 08:29 Polyethylene Glycol (Miralax) 17 gm TID PRN ORAL Constipation 10/14/17 06:45 11/13/17 06:44 Allergies: Coded Allergies: No Known Allergies (Unverified , 10/14/17) ROS Limited/Unobtainable: No Constitutional: Reports: no symptoms HEENT: Reports: no symptoms Cardiovascular: Reports: no symptoms Respiratory: Reports: no symptoms Gastrointestinal/Abdominal: Reports: no symptoms Genitourinary: Reports: no symptoms Neurologic/Psychiatric: Reports: no symptoms Subjective 66 YO F admitted with left hip fracture. S/P Left femur ORIF 10/15/17. Cover for Int Med-Dr Rao. Await acceptance to acute rehab Objective Last Vital Signs Date Time Temp Pulse Resp B/P (MAP) Pulse Ox O2 Delivery O2 Flow Rate FiO2 10/23/17 08:30 113 114/58 10/23/17 07:50 97.6 19 97 Room Air 97.6 10/17/17 04:00 2.0 Intake and Output 10/22/17 10/23/17 19:00 07:00 Intake Total 800 ml Balance 800 ml Intake Oral 800 ml # Voids 2 Objective General Appearance: WD/WN, alert, moderate distress EENT: PERRL/EOMI, normal ENT inspection, TMs normal Neck: non-tender, normal alignment, supple Cardiovascular: normal peripheral pulses, normal rate, regular rhythm, no gallop/murmur, no JVD Respiratory/Chest: chest wall non-tender, lungs clear, normal breath sounds, no respiratory distress, no accessory muscle use Abdomen: normal bowel sounds, non tender, soft, no organomegaly, no mass Extremities: normal range of motion, other - tender left hip 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 See ortho note. Physical therapy eval (2) Left hip pain Assessment & Plan: Continue dilaudid or norco prn (3) Post-op pain (4) Postoperative nausea and vomiting Assessment & Plan: PRN zofran Status: stable Assessment/Plan Discharge planning: [facility] [place] Acute rehab when accepted. CHAUNCEY AVALOS Oct 23, 2017 11:27
[2017-10-23 12:00] VITALS: BP 116/65
[2017-10-23 16:00] VITALS: BP 117/68
--- NOTE | 2017-10-23 16:07 | Pulmonology Progress Note ---
Assessment/Plan Problems: (1) Intertrochanteric fracture of left femur (2) Social isolation Assessment/Plan awaiting placement symptomatic treatment dvt prophylaxis pt/ot dc home with Subjective ROS Limited/Unobtainable: No Constitutional: Reports: no symptoms HEENT: Repors: no symptoms Respiratory: Reports: no symptoms Allergies: Coded Allergies: No Known Allergies (Unverified , 10/14/17) Objective Last 24 Hour Vital Signs Date Time Temp Pulse Resp B/P (MAP) Pulse Ox O2 Delivery O2 Flow Rate FiO2 10/23/17 12:00 98.3 83 20 116/65 98 Room Air 98.3 10/23/17 08:30 113 114/58 10/23/17 07:50 97.6 113 19 114/58 97 Room Air 97.6 10/23/17 04:00 97.8 103 19 110/69 93 Room Air 97.8 10/23/17 00:00 98.3 101 19 110/68 96 Room Air 98.3 10/22/17 20:00 98.1 91 19 113/70 94 Room Air 98.1 10/22/17 17:20 98 112/72 Intake and Output 10/22/17 10/23/17 19:00 07:00 Intake Total 800 ml Balance 800 ml Intake Oral 800 ml # Voids 2 General Appearance: WD/WN HEENT: normocephalic, atraumatic Respiratory/Chest: chest wall non-tender, lungs clear, normal breath sounds Breasts: no masses Cardiovascular: normal peripheral pulses Abdomen: normal bowel sounds, no organomegaly Extremities: no cyanosis, no clubbing Skin: no rash Current Medications Medications (Trade) Dose Ordered Sig/Dylon Route PRN Reason Start Time Stop Time Status Last Admin Dose Admin Acetaminophen (Tylenol) 650 mg Q4H PRN ORAL Mild Pain/Temp > 100.5 10/14/17 06:45 11/13/17 06:44 Acetaminophen (Tylenol) 650 mg Q4H PRN ORAL Mild Pain (Pain Scale 1-3) 10/15/17 16:30 11/14/17 16:29 10/23/17 10:57 Amlodipine Besylate (Norvasc) 5 mg BID ORAL 10/14/17 09:00 11/13/17 08:59 10/21/17 17:33 Diphenhydramine HCl (Benadryl) 25 mg Q8H PRN ORAL Itching 10/17/17 18:15 11/16/17 18:14 10/18/17 23:17 Docusate Sodium (Colace) 100 mg THREE TIMES A DAY ORAL 10/15/17 18:00 11/14/17 17:59 10/23/17 12:30 Enoxaparin Sodium (Lovenox) 30 mg DAILY SUBQ 10/16/17 09:00 10/26/17 08:59 10/23/17 08:36 Ferrous Sulfate (Feosol) 325 mg THREE TIMES A DAY ORAL 10/15/17 18:00 11/14/17 17:59 10/23/17 12:30 Magnesium Hydroxide (Mom) 30 ml DAILYPRN PRN ORAL Constipation 10/15/17 16:30 11/14/17 16:29 10/20/17 13:15 Ondansetron HCl (Zofran ODT) 4 mg Q6H PRN ORAL Nausea & Vomiting 10/16/17 17:30 11/15/17 17:29 10/16/17 17:14 Ondansetron HCl (Zofran) 4 mg Q4H PRN IVP Nausea & Vomiting 10/15/17 18:00 11/14/17 17:59 10/15/17 18:04 Oxycodone HCl (OxyCONTIN) 20 mg Q12HR ORAL 10/22/17 22:00 10/29/17 21:59 10/23/17 08:29 Polyethylene Glycol (Miralax) 17 gm TID PRN ORAL Constipation 10/14/17 06:45 11/13/17 06:44 John Metcalf MD Oct 23, 2017 16:07
[2017-10-23 20:00] VITALS: BP 123/62
[2017-10-24 04:00] VITALS: BP 110/64
[2017-10-24 07:19] LABS: EOSINOPHILS % (AUTO) 7.3 % (0.0-3.0); HEMOGLOBIN 11.1 G/DL (12.0-16.0); LYMPHOCYTES % (AUTO) 26.2 % (20.0-45.0); MEAN CORPUSCULAR VOLUME 92 FL (80-99); MONOCYTES % (AUTO) 9.4 % (1.0-10.0); NEUTROPHILS % (AUTO) 55.1 % (45.0-75.0); PLATELET COUNT 454 K/UL (150-450); RED BLOOD COUNT 3.71 M/UL (4.20-5.40); RED CELL DISTRIBUTION WIDTH 11.8 % (11.6-14.8); WHITE BLOOD COUNT 7.8 K/UL (4.8-10.8)
[2017-10-24 07:27] LABS: ANION GAP 2 mmol/L (5-15); BLOOD UREA NITROGEN 13 mg/dL (7-18); CARBON DIOXIDE 33 MMOL/L (21-32); CHLORIDE 101 MMOL/L (98-107); CREATININE 0.5 MG/DL (0.55-1.30); POTASSIUM 4.3 MMOL/L (3.5-5.1); SODIUM 136 MMOL/L (136-145)
[2017-10-24 08:18] VITALS: BP 108/57
[2017-10-24] MEDS: Docusate 100mg cap ORAL SCH ×3 (08:24→17:34)
[2017-10-24] MEDS: oxyCONTIN 20mg tab ORAL SCH ×2 (08:25→20:17)
[2017-10-24] MEDS: Enoxaparin 30mg Inj SUBQ SCH (08:29)
[2017-10-24 11:40] VITALS: BP 142/81
--- NOTE | 2017-10-24 15:59 | Pulmonology Progress Note ---
Assessment/Plan Problems: (1) Intertrochanteric fracture of left femur (2) Social isolation Assessment/Plan symptomatic treatment dvt prophylaxis pt/ot doing better might go home today Subjective ROS Limited/Unobtainable: No Constitutional: Reports: no symptoms HEENT: Repors: no symptoms Respiratory: Reports: no symptoms Allergies: Coded Allergies: No Known Allergies (Unverified , 10/14/17) Objective Last 24 Hour Vital Signs Date Time Temp Pulse Resp B/P (MAP) Pulse Ox O2 Delivery O2 Flow Rate FiO2 10/24/17 11:40 98.3 89 20 142/81 95 Room Air 98.3 10/24/17 08:53 100 108/57 10/24/17 08:18 98.1 100 17 108/57 99 Room Air 98.1 10/24/17 04:00 97.6 75 17 110/64 96 Room Air 97.6 10/23/17 20:00 98.1 79 20 123/62 97 Room Air 98.1 10/23/17 17:22 81 117/68 10/23/17 16:00 97.3 81 20 117/68 98 Room Air 97.3 Intake and Output 10/23/17 10/24/17 19:00 07:00 Intake Total 720 ml 240 ml Balance 720 ml 240 ml Intake Oral 720 ml 240 ml # Voids 3 2 Objective General Appearance: WD/WN Lines, tubes and drains: peripheral HEENT: normocephalic, atraumatic Neck: non-tender, normal alignment Respiratory/Chest: chest wall non-tender, lungs clear Breasts: no masses Cardiovascular/Chest: normal rate, regularly irregular Genitourinary/Rectal: normal genital exam, heme negative stool Extremities: normal range of motion Laboratory Tests 10/24/17 06:35: White Blood Count 7.8, Red Blood Count 3.71L, Hemoglobin 11.1L, Hematocrit 34.0L , Mean Corpuscular Volume 92, Mean Corpuscular Hemoglobin 30.0, Mean Corpuscular Hemoglobin Concent 32.7, Red Cell Distribution Width 11.8, Platelet Count 454H, Mean Platelet Volume 6.4L, Neutrophils (%) (Auto) 55.1, Lymphocytes (%) (Auto) 26.2, Monocytes (%) (Auto) 9.4, Eosinophils (%) (Auto) 7.3H, Basophils (%) (Auto) 2.0, Sodium Level 136, Potassium Level 4.3, Chloride Level 101, Carbon Dioxide Level 33H, Anion Gap 2L, Blood Urea Nitrogen 13, Creatinine 0.5L, Estimat Glomerular Filtration Rate > 60, Glucose Level 96, Calcium Level 9.0 Current Medications Medications (Trade) Dose Ordered Sig/Dylon Route PRN Reason Start Time Stop Time Status Last Admin Dose Admin Acetaminophen (Tylenol) 650 mg Q4H PRN ORAL Mild Pain/Temp > 100.5 10/14/17 06:45 11/13/17 06:44 10/24/17 12:52 Acetaminophen (Tylenol) 650 mg Q4H PRN ORAL Mild Pain (Pain Scale 1-3) 10/15/17 16:30 11/14/17 16:29 10/23/17 17:30 Amlodipine Besylate (Norvasc) 5 mg BID ORAL 10/14/17 09:00 11/13/17 08:59 10/24/17 08:53 Diphenhydramine HCl (Benadryl) 25 mg Q8H PRN ORAL Itching 10/17/17 18:15 11/16/17 18:14 10/18/17 23:17 Docusate Sodium (Colace) 100 mg THREE TIMES A DAY ORAL 10/15/17 18:00 11/14/17 17:59 10/24/17 12:45 Enoxaparin Sodium (Lovenox) 30 mg DAILY SUBQ 10/16/17 09:00 10/26/17 08:59 10/24/17 08:29 Ferrous Sulfate (Feosol) 325 mg THREE TIMES A DAY ORAL 10/15/17 18:00 11/14/17 17:59 10/24/17 12:45 Magnesium Hydroxide (Mom) 30 ml DAILYPRN PRN ORAL Constipation 10/15/17 16:30 11/14/17 16:29 10/20/17 13:15 Ondansetron HCl (Zofran ODT) 4 mg Q6H PRN ORAL Nausea & Vomiting 10/16/17 17:30 11/15/17 17:29 10/16/17 17:14 Ondansetron HCl (Zofran) 4 mg Q4H PRN IVP Nausea & Vomiting 10/15/17 18:00 11/14/17 17:59 10/15/17 18:04 Oxycodone HCl (OxyCONTIN) 20 mg Q12HR ORAL 10/22/17 22:00 10/29/17 21:59 10/24/17 08:25 Polyethylene Glycol (Miralax) 17 gm TID PRN ORAL Constipation 10/14/17 06:45 11/13/17 06:44 John Metcalf MD Oct 24, 2017 15:59
[2017-10-24] MEDS ORDERED: ACETAMINOPHEN-1 EAC1 ORAL (16:05)
[2017-10-24] MEDS ORDERED: NORVASC5 MG ORAL (16:05)
[2017-10-24 16:25] VITALS: BP 133/73
[2017-10-24 17:34] VITALS: BP 133/73
--- NOTE | 2017-10-24 19:02 | Internal Med Progress Note ---
Subjective Date of Service: Oct 24, 2017 Physician Name Meredith Avalos Attending Physician Vern Rao MD Current Medications Medications (Trade) Dose Ordered Sig/Dylon Route PRN Reason Start Time Stop Time Status Last Admin Dose Admin Acetaminophen (Tylenol) 650 mg Q4H PRN ORAL Mild Pain/Temp > 100.5 10/14/17 06:45 11/13/17 06:44 10/24/17 12:52 Acetaminophen (Tylenol) 650 mg Q4H PRN ORAL Mild Pain (Pain Scale 1-3) 10/15/17 16:30 11/14/17 16:29 10/23/17 17:30 Amlodipine Besylate (Norvasc) 5 mg BID ORAL 10/14/17 09:00 11/13/17 08:59 10/24/17 08:53 Diphenhydramine HCl (Benadryl) 25 mg Q8H PRN ORAL Itching 10/17/17 18:15 11/16/17 18:14 10/18/17 23:17 Docusate Sodium (Colace) 100 mg THREE TIMES A DAY ORAL 10/15/17 18:00 11/14/17 17:59 10/24/17 12:45 Enoxaparin Sodium (Lovenox) 30 mg DAILY SUBQ 10/16/17 09:00 10/26/17 08:59 10/24/17 08:29 Ferrous Sulfate (Feosol) 325 mg THREE TIMES A DAY ORAL 10/15/17 18:00 11/14/17 17:59 10/24/17 17:37 Magnesium Hydroxide (Mom) 30 ml DAILYPRN PRN ORAL Constipation 10/15/17 16:30 11/14/17 16:29 10/20/17 13:15 Ondansetron HCl (Zofran ODT) 4 mg Q6H PRN ORAL Nausea & Vomiting 10/16/17 17:30 11/15/17 17:29 10/16/17 17:14 Ondansetron HCl (Zofran) 4 mg Q4H PRN IVP Nausea & Vomiting 10/15/17 18:00 11/14/17 17:59 10/15/17 18:04 Oxycodone HCl (OxyCONTIN) 20 mg Q12HR ORAL 10/22/17 22:00 10/29/17 21:59 10/24/17 08:25 Polyethylene Glycol (Miralax) 17 gm TID PRN ORAL Constipation 10/14/17 06:45 11/13/17 06:44 Allergies: Coded Allergies: No Known Allergies (Unverified , 10/14/17) ROS Limited/Unobtainable: No Constitutional: Reports: no symptoms HEENT: Reports: no symptoms Cardiovascular: Reports: no symptoms Respiratory: Reports: no symptoms Gastrointestinal/Abdominal: Reports: no symptoms Genitourinary: Reports: no symptoms Neurologic/Psychiatric: Reports: no symptoms Subjective 66 YO F admitted with left hip fracture. S/P Left femur ORIF 10/15/17. Cover for Int [place]-Dr Rao. Await discharge home Objective Last Vital Signs Date Time Temp Pulse Resp B/P (MAP) Pulse Ox O2 Delivery O2 Flow Rate FiO2 10/24/17 17:34 97 133/73 10/24/17 16:25 98.5 20 96 Room Air 98.5 10/17/17 04:00 2.0 Laboratory Tests Test 10/24/17 06:35 White Blood Count 7.8 K/UL (4.8-10.8) Red Blood Count 3.71 M/UL (4.20-5.40) L Hemoglobin 11.1 G/DL (12.0-16.0) L Hematocrit 34.0 % (37.0-47.0) L Mean Corpuscular Volume 92 FL (80-99) Mean Corpuscular Hemoglobin 30.0 PG (27.0-31.0) Mean Corpuscular Hemoglobin Concent 32.7 G/DL (32.0-36.0) Red Cell Distribution Width 11.8 % (11.6-14.8) Platelet Count 454 K/UL (150-450) H Mean Platelet Volume 6.4 FL (6.5-10.1) L Neutrophils (%) (Auto) 55.1 % (45.0-75.0) Lymphocytes (%) (Auto) 26.2 % (20.0-45.0) Monocytes (%) (Auto) 9.4 % (1.0-10.0) Eosinophils (%) (Auto) 7.3 % (0.0-3.0) H Basophils (%) (Auto) 2.0 % (0.0-2.0) Sodium Level 136 MMOL/L (136-145) Potassium Level 4.3 MMOL/L (3.5-5.1) Chloride Level 101 MMOL/L (98-107) Carbon Dioxide Level 33 MMOL/L (21-32) H Anion Gap 2 mmol/L (5-15) L Blood Urea Nitrogen 13 mg/dL (7-18) Creatinine 0.5 MG/DL (0.55-1.30) L Estimat Glomerular Filtration Rate > 60 mL/min (>60) Glucose Level 96 MG/DL (74-106) Calcium Level 9.0 MG/DL (8.5-10.1) Intake and Output 10/23/17 10/24/17 19:00 07:00 Intake Total 720 ml 240 ml Balance 720 ml 240 ml Intake Oral 720 ml 240 ml # Voids 3 2 Objective General Appearance: WD/WN, alert, moderate distress EENT: PERRL/EOMI, normal ENT inspection, TMs normal Neck: non-tender, normal alignment, supple Cardiovascular: normal peripheral pulses, normal rate, regular rhythm, no gallop/murmur, no JVD Respiratory/Chest: chest wall non-tender, lungs clear, normal breath sounds, no respiratory distress, no accessory muscle use Abdomen: normal bowel sounds, non tender, soft, no organomegaly, no mass Extremities: normal range of motion, other - tender left hip 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 See ortho note. Physical therapy eval (2) Left hip pain Assessment & Plan: Continue dilaudid or norco prn (3) Post-op pain (4) Postoperative nausea and vomiting Assessment & Plan: PRN zofran Assessment/Plan Discharge planning: Home with home health-did not qualify for Acute rehab per case management MEREDITH AVALOS Oct 24, 2017 19:02
--- NOTE | 2017-10-25 14:16 | Discharge Summary ---
Discharge Summary Discharge Summary Discharge Summary DATE OF ADMISSION: 10/14/2017 DATE OF DISCHARGE: 10/24/2017 ATTENDING: Dr. Vern Rao CONSULTANTS: Dr. John Blunt BRIEF HOSPITAL COURSE: Patient is a 66-year-old white female who presented with chief complaint of left hip pain. She was on her way to the restroom when she suddenly slipped and fell on the floor. She had extreme left hip pain. She presented to [facility] emergency room. On evaluation, she was found to have comminuted left intertrochanteric femur fracture. She was then admitted for inpatient care. She has medical history significant for hypercholesterolemia, and prior oophorectomy secondary to ovarian cyst. She underwent orthopedic evaluation, hip x-rays were reviewed, patient has reverse obliquity intertrochanteric fracture. She had an echocardiogram that showed preserved ejection fraction EF of 60%, mild mitral regurgitation, trace tricuspid regurgitation. On 10/15/2017, she underwent left hip open reduction and internal fixation by Dr. Blunt. She tolerated procedure well and postoperatively was given pain management and physical therapy. She was placed on Lovenox for DVT prophylaxis. She was initially planned for transfer to acute rehabilitation, however, unable to get authorization. She was then discharged home with home health. FINAL DIAGNOSES: Acute intertrochanteric fracture of the left femur Status post ORIF on 10/15/2017 Postop pain Postop nausea and vomiting Social isolation DISPOSITION: Patient was discharged home with home health. DISCHARGE MEDICATIONS: Refer to Discharge Medication List. DISCHARGE INSTRUCTIONS: Follow up with PCP in a week. Continue with physical therapy with home health. Follow-up with Dr. Blunt in 2 weeks. I have been assigned to dictate discharge summary on this account, and I was not involved in the patient's management. Ethel Krishnamurthy NP Oct 25, 2017 14:16
== END 2017-10-24 20:50 | disposition home health service (06) | DRG 482 ==
LOC: EDBD 02:49 → EMR 03:30 → 3E 03:55 → EDBEDREQ 04:06 → 3E 10-21 23:52
PROC: 0QS704Z Reposition Left Upper Femur with Internal Fixation Device, Open Approach (ICD-10-PCS; principal; 2017-10-15 12:30)
DX: S72.142A Displaced intertrochanteric fracture of left femur, initial encounter for closed fracture (principal); W01.0XXA Fall on same level from slipping, tripping and stumbling without subsequent striking against object, initial encounter; Y92.9 Unspecified place or not applicable; I10 Essential (primary) hypertension; E78.00 Pure hypercholesterolemia, unspecified; R11.2 Nausea with vomiting, unspecified; Z60.4 Social exclusion and rejection; Z72.0 Tobacco use
CPT/HCPCS: 36415; 71045; 72170; 73502; 76001; 80048; 80053; 81001; 84484; 85025; 85610; 85730; 86850; 86900; 86901; 86920; 93005; 93306; 94003; 94150; 99285; J2250; J2405